=== PATIENT | female | born 1935 | race African-American/Black ===

== ENCOUNTER 2020-06-15 10:26 | Inpatient (IN) | payer MEDICARE, MEDICAID ==
[~2020-06-15] VITALS: Ht 167.6 cm; Wt 54.4 kg
[~2020-06-15 10:26] MED LIST: CLOPIDOGREL75 MG ORAL; KEFLEX500 MG ORAL; LEVETIRACETAM500 MG ORAL; METOPROLOL TART25 MG ORAL; TEMAZEPAM30 MG ORAL
[2020-06-15 10:35] VITALS: BP 115/68
--- NOTE | 2020-06-15 10:35 | NUR ---
ED Nurse Note: Pt brought in by ambualnce from home d/t CP that started this morning. Per EMS and song, pt has been having toothaches recently with jaw pain and is receiving dental care. Pt now reporting chest pressure pain extending to left shoulder. Respirations even and unlabored on room air. Vitals stable as documented. A+Ox4, speaking in complete sentences, sometimes forgetful.
[2020-06-15 11:08] LABS: BASOPHILS % (AUTO) 0.9 % (0.0-2.0); EOSINOPHILS % (AUTO) 0.1 % (0.0-3.0); HEMATOCRIT 36.3 % (37.0-47.0); HEMOGLOBIN 11.7 G/DL (12.0-16.0); LYMPHOCYTES % (AUTO) 12.4 % (20.0-45.0); MEAN CORPUSCULAR VOLUME 92 FL (80-99); NEUTROPHILS % (AUTO) 74.6 % (45.0-75.0); PLATELET COUNT 156 K/UL (150-450); RED BLOOD COUNT 3.96 M/UL (4.20-5.40); RED CELL DISTRIBUTION WIDTH 13.4 % (11.6-14.8); WHITE BLOOD COUNT 6.5 K/UL (4.8-10.8)
[2020-06-15] MEDS ORDERED: UNABLE TO OBTAIN (11:10)
[2020-06-15 11:19] LABS: CALCIUM 9.6 MG/DL (8.5-10.1); CREATININE 1.4 MG/DL (0.55-1.30); POTASSIUM 4.1 MMOL/L (3.5-5.1)
[2020-06-15 11:23] LABS: ALBUMIN 4.3 G/DL (3.4-5.0); BILIRUBIN,TOTAL 0.7 MG/DL (0.2-1.0)
--- NOTE | 2020-06-15 11:36 | NUR ---
ED Nurse Note: pt reports that three years ago a doctor told her to not take anything with aspirin in it. Pt unaware of why
--- NOTE | 2020-06-15 11:44 | Diagnostic Imaging Report ---
Indication: Chest pain Technique: One view of the chest Comparison: 10/12/2012 Findings: Lungs and pleural spaces are clear. The heart size is normal. The aorta is tortuous and calcified. No significant change Impression: No acute process
[2020-06-15 12:30] VITALS: BP 126/77
--- NOTE | 2020-06-15 13:11 | NUR ---
ED Nurse Note: tatum Raya - son - home number: [phone]
--- NOTE | 2020-06-15 13:11 | NUR ---
ED Nurse Note: son's cell phone number - [phone]
--- NOTE | 2020-06-15 13:46 | Emergency Room Report ---
History of Present Illness General Chief Complaint: Chest Pain Present Illness HPI Disclaimer: Please note that this report is being documented using [employer] technology. This can lead to erroneous entry secondary to incorrect interpretation by the dictating instrument. HPI: 85-year old female presents from home with complaints of chest pain. She states she has a history of "a heart condition" and starting last night she was having some jaw pain and neck pain and now describes left-sided chest pain that is pressure-like, nonradiating at this time. She denies any nausea vomiting fever coughing or shortness of breath. Pain is approximately 5 out of 10 on my exam. Ports an adverse reaction to aspirin in the past. Allergies: Coded Allergies: ASPIRIN (Unverified Adverse Reaction, Unknown, 05/08/16) COVID-19 Screening Contact w/high risk pt: No Experienced COVID-19 symptoms?: No COVID-19 Testing performed LUGGAGE ATTENDANT: No Patient History Reviewed Nursing Documentation: PMH: Agreed; PSxH: Agreed Nursing Documentation-PMH Hx Cardiac Problems: Yes Hx Hypertension: Yes Hx Seizures: Yes Review of Systems All Other Systems: negative except mentioned in HPI Physical Exam Vital Signs Date Time Temp Pulse Resp B/P (MAP) Pulse Ox O2 Delivery O2 Flow Rate FiO2 06/15/20 10:28 97.9 98 16 117/72 (87) 97 Room Air Sp02 EP Interpretation: reviewed, normal General Appearance: well appearing, no apparent distress, other - Thin appearing Head: normocephalic, atraumatic Eyes: bilateral eye PERRL, bilateral eye EOMI ENT: hearing grossly normal, moist mucus membranes Neck: full range of motion, supple Respiratory: lungs clear, normal breath sounds, no rhonchi, no respiratory distress, no retraction, no wheezing Cardiovascular #1: normal peripheral pulses, regular rate, rhythm, no murmur Gastrointestinal: non tender, soft, non-distended, no guarding Neurologic: alert, oriented x3, no focal defects Skin: normal color, warm/dry Medical Decision Making Diagnostic Impression: Primary Impression: Chest pain ER Course MDM: Differential diagnosis included but not limited to angina, musculoskeletal injury, GERD, muscle spasm, less likely dissection or PE. Clinical course-patient was in no acute distress on exam. EKG showed no ischemic changes. She states she has a history of heart condition but has never been admitted here in the past. Patient is a poor historian. Troponin was negative. Chest x-ray did not show any acute pathology. However due to her age and reported cardiac history and episode of chest pain with some jaw pain last night I do believe she would benefit from observation and admission to the hospital. Aspirin was not given in the ER secondary to a reported aspirin allergy. Labs - Laboratory Tests Test 06/15/20 10:40 White Blood Count 6.5 K/UL (4.8-10.8) Red Blood Count 3.96 M/UL (4.20-5.40) L Hemoglobin 11.7 G/DL (12.0-16.0) L Hematocrit 36.3 % (37.0-47.0) L Mean Corpuscular Volume 92 FL (80-99) Mean Corpuscular Hemoglobin 29.6 PG (27.0-31.0) Mean Corpuscular Hemoglobin Concent 32.4 G/DL (32.0-36.0) Red Cell Distribution Width 13.4 % (11.6-14.8) Platelet Count 156 K/UL (150-450) Mean Platelet Volume 7.7 FL (6.5-10.1) Neutrophils (%) (Auto) 74.6 % (45.0-75.0) Lymphocytes (%) (Auto) 12.4 % (20.0-45.0) L Monocytes (%) (Auto) 12.0 % (1.0-10.0) H Eosinophils (%) (Auto) 0.1 % (0.0-3.0) Basophils (%) (Auto) 0.9 % (0.0-2.0) Sodium Level 140 MMOL/L (136-145) Potassium Level 4.1 MMOL/L (3.5-5.1) Chloride Level 103 MMOL/L (98-107) Carbon Dioxide Level 28 MMOL/L (21-32) Anion Gap 9 mmol/L (5-15) Blood Urea Nitrogen 19 mg/dL (7-18) H Creatinine 1.4 MG/DL (0.55-1.30) H Estimated Glomerular Filtration Rate 43.3 mL/min (>60) Glucose Level 108 MG/DL (74-106) H Calcium Level 9.6 MG/DL (8.5-10.1) Total Bilirubin 0.7 MG/DL (0.2-1.0) Aspartate Amino Transferase (AST) 17 U/L (15-37) Alanine Aminotransferase (ALT) 12 U/L (12-78) Alkaline Phosphatase 48 U/L (46-116) Troponin I 0.000 ng/mL (0.000-0.056) Total Protein 8.4 G/DL (6.4-8.2) H Albumin 4.3 G/DL (3.4-5.0) Globulin 4.1 g/dL Albumin/Globulin Ratio 1.0 (1.0-2.7) Plan-admission to the telemetry unit EKG Diagnostic Results Rate: normal Rhythm: NSR ST Segments: no acute changes Rhythm Strip Diag. Results EP Interpretation: yes Rate: 99 Rhythm: NSR, no PVC's Chest X-Ray Diagnostic Results Chest X-Ray Diagnostic Results : Chest X-Ray Ordered: Yes # of Views/Limited/Complete: 1 View Indication: Chest Pain EP Interpretation: Yes Interpretation: no consolidation, no effusion, no pneumothorax Impression: No acute disease Electronically Signed by: Yfn Snyder MD Last Vital Signs Date Time Temp Pulse Resp B/P (MAP) Pulse Ox O2 Delivery O2 Flow Rate FiO2 06/15/20 12:30 97.8 97 18 126/77 97 Room Air Disposition: ADMITTED INPATIENT Condition: Serious Referrals: [facility],REFERRING (PCP) Yfn Snyder M.D. Jun 15, 2020 13:46
[2020-06-15] MEDS ORDERED: Nitroglycerin Subl 0.4mg tab SL PRN ×2 (15:00→18:00)
--- NOTE | 2020-06-15 15:25 | NUR ---
ED Nurse Note: Report given to SMILEY Mercer on 2E
--- NOTE | 2020-06-15 16:06 | NUR ---
ED Nurse Note: Pt transferred safely to 2E on the monitor. Transferred with all belongings. Pt has glasses case with no glasses inside.
--- NOTE | 2020-06-15 16:10 | NUR ---
NURSE NOTES: pt arrived to unit in stable condition no chest pain no SOB. Pt was put on conveyor monitor at 1650, no cardiac or respiratory distress. Belonging with pt, eye glasses and shoes in addition to cloths. Bed is locked and in lowest position. Call light within reach. v/s 114/69 HR 90 T 98.2 R20 O296. will continue to monitor pt.
--- NOTE | 2020-06-15 17:38 | NUR ---
NURSE NOTES: pt only had one hearing aid L ear only, upon admission.
--- NOTE | 2020-06-15 19:05 | NUR ---
NURSE NOTES: Ok for pt to ambulate as form of DVT prophylaxis, per doct. Prazat. No SCD's were ordered for pt.
--- NOTE | 2020-06-15 19:44 | NUR ---
NURSE NOTES: Report received from SMILEY Mercer. Patient is awake on bed, alert and oriented x 3-4. Hard of hearing and has 1 hearing aid on left ear. On room air, sating 96% with no complaints of shortness of breath. On cardiac diet, instructed and amenable. Patient is ambulatory but needs assistance, bed alarm is on. IV site is on right forearm g-20 saline lock, that is patent and intact. equipment monitor phototypesetting is in place, shows Aflutter. Safety measures are in place, bed in lowest and locked position, side rails up x 2, call light button and bedside table within reach, instructed to call for any assistance needed. Will continue plan of carel
[2020-06-15 20:00] VITALS: BP 110/70
--- NOTE | 2020-06-15 20:03 | NUR ---
NURSE HAND-OFF REPORT: Important Events on Shift:unable to confirm medication with family member endorsed it to Lisa/RN, she will follow up to confirm medications pt takes at home. Pt is extremely hard of hearing. Per doctor Chadwick continue home meds. Lisa will continue medication as soon as she is able to verify medications with family members. Patient Status: full Diet: cardiac Pending Orders: labs am Pending Results/Labs: Pending MD notification: Latest Vital Signs: Temperature 98.2 , Pulse 91 , B/P 113 /72 , Respiratory Rate 18 , O2 SAT 98 , Room Air, O2 Flow Rate . Vital Sign Comment: EKG Rhythm: Sinus Rhythm Rhythm change?: Rocky VARGHESE Notified?: Rocky Donovan MD Response: Order Received& Read Back Latest Dorsey Fall Score: 35 Fall Risk: Medium Risk Safety Measures: Call light , Bed Alarm Zone 2, Side Rails Side Rails x2, Bed position . Fall Precautions: y Yellow Gown y Report given to Lisa/RN .
[2020-06-16] VITALS (7 sets, daily range): BP systolic 102–128; BP diastolic 54–87
[2020-06-16] MEDS: traMADol 50mg tab ORAL PRN (01:09)
--- NOTE | 2020-06-16 07:22 | NUR ---
NURSE NOTES: Received hand-off report from SMILEY Parr. Patient in stable condition, alert and oriented x3, able to verbalize needs and follow commands. Stat EKG was performed and reported to Dr. Smith, findings were atrial fibrillation with rapid ventricular response HR 119, Dr. Smith aware, no new orders at this time. Dr. Smith was called initially but stated that texting is preferred. V/S BP: 128/87, spO2: 98%, RR: 20. 2 side rails padded, IV site intact. Bed in lowest and locked position, bed alarm on, yellow socks on, call light within reach.
--- NOTE | 2020-06-16 07:22 | NUR ---
NURSE HAND-OFF REPORT: Important Events on Shift: Patient has eulalia resting well comfortably with no complaints made. Patient Status: Patient is asleep, in stable condition. Plan of care endorsed. Diet: Cardiac diet Pending Orders: 2DECHO Pending Results/Labs:Troponin result this morning Pending MD notification:none Latest Vital Signs: Temperature 97.9 , Pulse 94 , B/P 126 /71 , Respiratory Rate 16 , O2 SAT 96 , Room Air, O2 Flow Rate . Vital Sign Comment: stable EKG Rhythm: Atrial Flutter Rhythm change?: N Notified?: Rocky Donovan MD Response: Order Received& Read Back Latest Dorsey Fall Score: 35 Fall Risk: Medium Risk Safety Measures: Call light Within Reach, Bed Alarm Zone 1, Side Rails Side Rails x2, Bed position . Fall Precautions: Yellow Socks Door Sign Patient Fall Education Report given to SMILEY Doyle.
--- NOTE | 2020-06-16 11:52 | Cardiac Electrophysiology PN ---
Subjective Subjective [id number] Objective Last 24 Hour Vital Signs Date Time Temp Pulse Resp B/P (MAP) Pulse Ox O2 Delivery O2 Flow Rate FiO2 06/16/20 09:32 117 128/87 06/16/20 08:00 106 06/16/20 08:00 97.6 117 18 128/87 (101) 96 06/16/20 07:18 152 06/16/20 07:18 152 20 121/75 (90) 99 06/16/20 04:00 94 06/16/20 04:00 97.9 113 16 126/71 (89) 96 06/16/20 00:00 101 06/16/20 00:00 97.7 98 16 124/78 (93) 100 06/15/20 21:00 Room Air 06/15/20 20:00 98.0 97 20 110/70 (83) 96 06/15/20 20:00 102 06/15/20 17:39 Room Air 06/15/20 17:15 91 06/15/20 16:06 98.2 92 18 113/72 98 Room Air 06/15/20 15:05 109/66 06/15/20 12:30 97.8 97 18 126/77 97 Room Air Intake and Output 06/15/20 06/16/20 19:00 07:00 Intake Total 820 ml Output Total 450 ml Balance 370 ml Intake Oral 820 ml Output Urine Total 450 ml # Voids 1 2 Laboratory Tests Test 06/16/20 06:14 Troponin I 0.000 ng/mL (0.000-0.056) Stefano Smith MD Jun 16, 2020 11:52
[2020-06-16] MEDS: Metoprolol Tartrate 50mg tab ORAL SCH ×2 (11:55→22:49)
--- NOTE | 2020-06-16 12:30 | Consultation ---
DATE OF CONSULTATION: 06/16/2020 PULMONARY CONSULTATION HISTORY OF PRESENT ILLNESS: This is an 85-year-old female who came to the hospital with chest pain. The patient reports unknown cardiac conditions. She started having neck and jaw pain. Denies any nausea, vomiting, hematemesis. The patient denies any significant past history except for history of problems, hypertension, seizure disorder. MEDICATIONS: Her current list of home medications includes Plavix, Keppra, metoprolol. REVIEW OF SYSTEMS: Denies any headaches, hematemesis, melena, hematochezia, night sweats or weight loss. PHYSICAL EXAMINATION: GENERAL: Reveals an 85-year-old female. VITAL SIGNS: Blood pressure 120/70, heart rate 110, respiratory rate 18, O2 saturation 96% on room air. HEENT: Unremarkable. CHEST: Clear breath sounds bilaterally. ABDOMEN: Soft. EXTREMITIES: There is no edema. LABORATORY DATA: Hemoglobin 11.7, otherwise normal CBC and BMP. Troponin negative x2. IMAGING STUDIES: X-ray chest obtained, which showed clear lung sanchez bilaterally. IMPRESSION: 1. Chest pain, rule out ACS. 2. Troponin negative x2. DISCUSSION: I believe her chest pain is likely cardiac. I do not see a pulmonary source. We will request 2D echo. Cardiology has been consulted. We will follow carefully. Tera White M.D. DR: Mary Kay JOB#: [id number] CC:
--- NOTE | 2020-06-16 12:42 | NUR ---
INSURANCE [employer]IC[employer] FAXED TO [facility] [phone]
--- NOTE | 2020-06-16 12:50 | NUR ---
NURSE NOTES: Notified Dr. Smith regarding BP 109/78 and did not administer metoprolol.
--- NOTE | 2020-06-16 15:30 | History and Physical Report ---
DATE OF ADMISSION: 06/15/2020 HISTORY OF PRESENT ILLNESS: This is an 85-year-old female, currently in bed, generalized weakness, hard of hearing mild to moderate shortness of breath, and having recurrent chest pain. The patient denies any palpitation. Denies any nausea or vomiting. The patient is in bed and looks generalized weakness and dehydrated. PAST MEDICAL HISTORY: Significant for coronary artery disease, seizure, insomnia, early dementia. MEDICATIONS: She is taking apixaban, Plavix, Keppra, metoprolol, nitroglycerin, Restoril, and tramadol. ALLERGIES: NKA. SOCIAL HISTORY: The patient lives at home. PHYSICAL EXAMINATION: GENERAL: This is a cachectic female in the bed and looks comfortable, was found to have tachycardia. VITAL SIGNS: Heart rate was 117, blood pressure 128/87, temperature 97.6, saturation 96%. SKIN: Dry. HEENT: AT/NC. DELTA. NECK: Supple. No JVD. CHEST: Bilateral decreased breath sounds. CARDIOVASCULAR: Regular rhythm. No gallop. No murmur. ABDOMEN: Soft. Positive bowel sounds. Nontender. EXTREMITIES: No edema. GENITOURINARY: Deferred. LABORATORY DATA: White count 6.5, hemoglobin 12, hematocrit 36, platelets are 156. Chemistry panel, BUN 19, creatinine 1.4. Troponins are negative. Sodium 140, potassium 4.1. EKGs known for sinus tachycardia. IMAGING: The patient has a chest x-ray showing no acute process. Lungs are clear. clear. ASSESSMENT: 1. Recurrent chest pain. 2. Palpitation. 3. Coronary artery disease. 4. Dementia. 5. Seizure. PLAN: We will currently continue current treatment. Consider cardiology consult. Continue apixaban, metoprolol. Continue Keppra, Plavix, Restoril, tramadol, nitroglycerin for pain. Also order 2D echo and rule out KS with stress test. Suresh Vann M.D. DR: YAHAIRA JOB#: [id number] CC:
--- NOTE | 2020-06-16 15:31 | NUR ---
CASE MANAGEMENT:REVIEW 85YR OLD MALE BIBA FROM HOME CC; CHEST PAIN SI: ACS 97.9 98 16 117/72 97% ON RA TROPONIN(-) IS: NTG SL X1 CHEST XRAY : TO TELEMETRY UNIT IS: ELIQUIS PO BID LOPRESSOR PO Q12 KEPPRA PO BID PLAVIX PO QD 2DECHO CARDIAC CONSULT
[2020-06-16] MEDS: Eliquis 2.5mg tablet ORAL SCH (17:48)
--- NOTE | 2020-06-16 19:00 | Consultation ---
DATE OF CONSULTATION: 06/16/2020 CARDIOLOGY CONSULTATION CONSULTING PHYSICIAN: Stefano Smith MD REFERRING PHYSICIAN: Dao Vann MD REASON FOR CONSULTATION: Chest pain and atrial fibrillation with rapid ventricular response. HISTORY OF PRESENT ILLNESS: The patient is an 85-year-old lady with history of hypertension, who presented to the emergency room complaining of chest pain. The patient stated she has a history of heart condition and noticed her heart racing and has had some jaw pain and neck pain. The pain was pressure like and was 5/10. The patient denies any prior myocardial infarction, coronary artery disease, or congestive heart failure. REVIEW OF SYSTEMS: Negative other than what was mentioned in history of present illness. PAST MEDICAL HISTORY: As mentioned above. FAMILY HISTORY: Noncontributory. SOCIAL HISTORY: Does not smoke or drink alcohol. PHYSICAL EXAMINATION: VITAL SIGNS: Show blood pressure of 117/87, pulse was as high as 152 and currently 117, respirations 18, and she is afebrile. HEAD AND NECK: Shows no JVD. LUNGS: Coarse rhonchi. CARDIOVASCULAR: Shows S1 and S2 with no gallop or murmur. ABDOMEN: Soft. EXTREMITIES: No pitting edema. LABORATORY AND DIAGNOSTIC DATA: Her EKG initially showed sinus rhythm with sinus arrhythmia. Subsequently, the patient had atrial flutter with rapid ventricular response. Labs show troponin negative x2. Sodium 140, potassium 4.1, BUN of 19, creatinine 1.4, and glucose of 96. White count is 6.5, hemoglobin 11.7, hematocrit 36.3, and platelet count of 155,000. ASSESSMENT AND PLAN: 1. Atrial fibrillation with rapid ventricular response. I will increase the metoprolol to 50 mg b.i.d. I will start the patient on Eliquis 2.5 mg b.i.d. in view of her creatinine of 1.6 as well as her age of 85. 2. Hypertension. Again, increase metoprolol to 50 mg b.i.d. 3. Seizures, on Keppra. Thank you very much for allowing me to participate in the care of this patient. Please do not hesitate to contact me for any questions regarding my evaluation. Stefano Smith M.D. DR: SANTANA JOB#: [id number] CC:
--- NOTE | 2020-06-16 19:25 | NUR ---
NURSE NOTES: Report received from SMILEY Miguel. Patient is awake alert and makes needs known but hard of hearing. No SOB or distress. Bed at lowest position locked with siderail up and bed alarm activated. Call light and bedside table within reach. Will continue with plan of care.
--- NOTE | 2020-06-16 19:26 | NUR ---
NURSE HAND-OFF REPORT: Important Events on Shift: left hearing aid beside, dentures patient wearing; in the morning 113 HR atrial fibrillation with rapid ventricular response; 16:[address] Smith aware Patient Status: full code, stable condition Diet: cardiac Pending Orders: [] Pending Results/Labs:[] Pending MD notification:[] Latest Vital Signs: Temperature 97.7 , Pulse 80 , B/P 102 /60 , Respiratory Rate 20 , O2 SAT 98 , Room Air, O2 Flow Rate . Vital Sign Comment: [] EKG Rhythm: Atrial Fibrillation Rhythm change?: Y Notified?: Y -Dr. Luis VARGHESE Response: Message left await call Latest Dorsey Fall Score: 35 Fall Risk: Medium Risk Safety Measures: Call light Within Reach, Bed Alarm Zone 1, Side Rails Side Rails x2, Bed position Low and Locked. Fall Precautions: Yellow Socks Door Sign Patient Fall Education Report given to SMILEY Chiang.
[2020-06-17] VITALS: BP 100/60
[2020-06-17] MEDS: traMADol 50mg tab ORAL PRN ×2 (03:54→15:09)
[2020-06-17 04:00] VITALS: BP 103/57
--- NOTE | 2020-06-17 04:09 | Cardiology Report ---
APPROVED REPORT EXAM: Two-dimensional and M-mode echocardiogram with Doppler and color Doppler. INDICATION Chest Pain M-Mode DIMENSIONS IVSd0.8 (0.7-1.1cm)Left Atrium (MM)4.3 (1.6-4.0cm) LVDd3.7 (3.5-5.6cm)Aortic Root3.0 (2.0-3.7cm) PWd0.9 (0.7-1.1cm)Aortic Cusp Exc.1.9 (1.5-2.0cm) IVSs1.1 cmEPSS0.5 (>1.0cm) LVDs2.9 (2.5-4.0cm) PWs1.1 cm <Conclusion> Technically difficult study due to poor acoustic windows. Normal left ventricular chamber size, systolic function and wall motion to extent visualized. Left ventricular ejection fraction estimated to be 50- 55 %. No evidence of left ventricular hypertrophy. Small pericardial effusion. Mild left atrial enlargement. Right cardiac chamber sizes are within normal limits. Focal aortic valve sclerosis with adequate cusp excursion. Thickened mitral valve leaflets with normal excursion. Mitral annulus and aortic root calcification. Pulmonic valve not well visualized. Normal tricuspid valve structure. IVC not obtainable. A color flow and spectral Doppler study was performed and revealed: Trace aortic regurgitation. Trace mitral regurgitation. Left ventricular diastolic function undetermined due to Arrhythmia. Trace to mild tricuspid regurgitation. Tricuspid systolic velocities suggests peak right ventricular systolic pressure of 28 mmHg. No pulmonic regurgitation present.
--- NOTE | 2020-06-17 04:10 | Cardiology Report ---
APPROVED REPORT EKG Measurement Heart [id number] CA 224P [id number] <Conclusion> atrial fibrillation with rapid ventricular response Nonspecific T wave abnormality Abnormal ECG
--- NOTE | 2020-06-17 04:10 | Cardiology Report ---
APPROVED REPORT EKG Measurement Heart [id number] [place] 200P [id number] <Conclusion> Atrial tachy with variable block
--- NOTE | 2020-06-17 07:30 | NUR ---
NURSE NOTES: Received patient in bed. Awake, A/O x3. On room air, respirations unlabored. IV in the Right FA, site intact. Patient denies pain. Bed at the lowest position, side rails up x2.
--- NOTE | 2020-06-17 07:42 | NUR ---
NURSE HAND-OFF REPORT: Important Events on Shift:[Stable] Patient Status: [Alert oriented x3] Diet: [Cardiac] Pending Orders: [] Pending Results/Labs:[] Pending MD notification:[] Latest Vital Signs: Temperature 97.3 , Pulse 99 , B/P 103 /57 , Respiratory Rate 16 , O2 SAT 99 , Room Air, O2 Flow Rate . Vital Sign Comment: [] EKG Rhythm: Atrial Fibrillation Rhythm change?: N MD Notified?: Rocky Smith MD Response: Message left await call Latest Dorsey Fall Score: 35 Fall Risk: Medium Risk Safety Measures: Call light Within Reach, Bed Alarm Zone 1, Side Rails Side Rails x2, Bed position Low and Locked. Fall Precautions: Yellow Socks Door Sign Patient Fall Education Report given to [SMILEY Bateman].
[2020-06-17 08:00] VITALS: BP 128/68
--- NOTE | 2020-06-17 08:39 | Pulmonology Progress Note ---
Subjective Interval Events: Feeling well Constitutional: Reports: no symptoms HEENT: Repors: no symptoms Respiratory: Reports: no symptoms Cardiovascular: Reports: no symptoms Gastrointestinal/Abdominal: Reports: no symptoms Allergies: Coded Allergies: ASPIRIN (Unverified Adverse Reaction, Unknown, 05/08/16) Objective Last 24 Hour Vital Signs Date Time Temp Pulse Resp B/P (MAP) Pulse Ox O2 Delivery O2 Flow Rate FiO2 06/17/20 08:25 Room Air 06/17/20 04:00 97.3 99 16 103/57 (72) 99 06/17/20 04:00 99 06/17/20 00:00 97.9 99 16 100/60 (73) 99 06/17/20 00:00 99 06/16/20 22:49 101 110/70 06/16/20 21:00 Room Air 06/16/20 20:00 97.5 99 20 102/54 (70) 99 06/16/20 20:00 91 06/16/20 16:00 97.7 80 20 102/60 (74) 98 06/16/20 16:00 80 06/16/20 12:00 83 06/16/20 12:00 97.7 97 20 109/78 (88) 98 06/16/20 11:55 83 109/78 06/16/20 09:32 117 128/87 06/16/20 09:00 Room Air Intake and Output 06/16/20 06/17/20 18:59 06:59 Intake Total 500 ml 400 ml Balance 500 ml 400 ml Intake Oral 500 ml 400 ml # Voids 2 1 # Bowel Movements 1 General Appearance: no acute distress HEENT: normocephalic Respiratory: chest wall non-tender, lungs clear Cardiovascular: normal peripheral pulses, normal rate Abdomen: normal bowel sounds Laboratory Tests 06/17/20 05:40: Troponin I 0.000, Pro-B-Type Natriuretic Peptide 639H Current Medications Medications (Trade) Dose Ordered Sig/Van Route PRN Reason Start Time Stop Time Status Last Admin Dose Admin Apixaban (Eliquis) 2.5 mg BID ORAL 06/16/20 18:00 09/14/20 17:59 06/16/20 17:48 Clopidogrel Bisulfate (Plavix) 75 mg DAILY ORAL 06/16/20 09:00 07/16/20 08:59 06/16/20 09:31 Levetiracetam (Keppra) 250 mg TWICE A DAY ORAL 06/16/20 09:00 07/31/20 08:59 06/16/20 17:47 Metoprolol Tartrate (Lopressor) 50 mg EVERY 12 HOURS ORAL 06/16/20 11:55 09/14/20 11:54 06/16/20 22:49 Nitroglycerin (Ntg) 0.4 mg Q5M PRN SL Prn Chest Pain 06/15/20 18:00 07/15/20 17:59 Temazepam (Restoril) 15 mg HSPRN PRN ORAL Insomnia 06/16/20 02:00 06/23/20 01:59 Tramadol HCl (Ultram) 50 mg Q4H PRN ORAL For Pain 06/16/20 01:00 06/23/20 00:59 06/17/20 03:54 Assessment/Plan Assessment/Plan IMPRESSION: 1. Chest pain,resolved 2. Troponin negatives. 3. A fib DISCUSSION: I Chest pain resolved Heart rate controlled Seen by cardiology DC planning Saturating well on RA Lamont Adame Omar Syed MD Jun 17, 2020 08:39
[2020-06-17] MEDS: Eliquis 2.5mg tablet ORAL SCH ×2 (08:41→17:13)
[2020-06-17] MEDS: Metoprolol Tartrate 50mg tab ORAL SCH ×2 (08:42→21:00)
--- NOTE | 2020-06-17 08:47 | General Progress Note ---
Subjective Allergies: Coded Allergies: ASPIRIN (Unverified Adverse Reaction, Unknown, 05/08/16) Subjective more awake sob better no c-p Objective Last 24 Hour Vital Signs Date Time Temp Pulse Resp B/P (MAP) Pulse Ox O2 Delivery O2 Flow Rate FiO2 06/17/20 08:42 80 128/68 06/17/20 08:25 Room Air 06/17/20 08:00 96.8 80 19 128/68 (88) 97 06/17/20 04:00 97.3 99 16 103/57 (72) 99 06/17/20 04:00 99 06/17/20 00:00 97.9 99 16 100/60 (73) 99 06/17/20 00:00 99 06/16/20 22:49 101 110/70 06/16/20 21:00 Room Air 06/16/20 20:00 97.5 99 20 102/54 (70) 99 06/16/20 20:00 91 06/16/20 16:00 97.7 80 20 102/60 (74) 98 06/16/20 16:00 80 06/16/20 12:00 83 06/16/20 12:00 97.7 97 20 109/78 (88) 98 06/16/20 11:55 83 109/78 06/16/20 09:32 117 128/87 06/16/20 09:00 Room Air Intake and Output 06/16/20 06/17/20 19:00 07:00 Intake Total 500 ml 400 ml Balance 500 ml 400 ml Intake Oral 500 ml 400 ml # Voids 2 1 # Bowel Movements 1 Laboratory Tests 06/17/20 05:40: Troponin I 0.000, Pro-B-Type Natriuretic Peptide 639H Height (Feet): 5 Height (Inches): 6.00 Weight (Pounds): 120 General Appearance: alert EENT: PERRL/EOMI Neck: non-tender, supple Cardiovascular: regular rhythm Respiratory/Chest: lungs clear Abdomen: non tender, soft Extremities: non-tender Assessment/Plan Status: stable Assessment/Plan: 1 cp 2 sob 3weakness 4 failure of thrive cardiac w/u cont current tx Dao Vann MD Jun 17, 2020 08:47
[2020-06-17 12:00] VITALS: BP 128/68
--- NOTE | 2020-06-17 12:52 | NUR ---
CASE MANAGEMENT:REVIEW 06/17/20 SI: CHEST PAIN. AFIB W/RVR 97.0 97 20 128/68 98% ON RA TROPONIN(-) X4 BNP+639 IS: ELIQUIS 2.5MG PO BID LOPRESSOR 50MG PO Q12 KEPPRA 250MG PO BID PLAVIX 75MG PO QD ULTRAM PO Q4HRS PRN : TELEMETRY STATUS PLAN: WAITING FOR CARDIAC CLEARANCE FOR DISCHARGE
--- NOTE | 2020-06-17 13:41 | CDS Physician Query ---
Clarification is required for compliance, coding accuracy, and to reflect severity of illness for this patient Dear Dr. Suresh Vann Date 06/17/2020 Shed Boss/CDS' Name: Radha Henriquez Clinical Documentation states: 85-year-old female, currently in bed, generalized weakness, hard of hearing mild to moderate shortness of breath, and having recurrent chest pain Cardiology consult: Subsequently, the patient had atrial flutter with rapid ventricular response. Labs show troponin negative x2...Atrial fibrillation with rapid ventricular response. I will increase the metoprolol to 50 mg b.i.d. I will start the patient on Eliquis 2.5 mg b.i.d. Please document the suspected etiology of Chest Pain: [] Atrial Fibrillation [] Atrial Flutter [] Acute Coronary Syndrome [] Anxiety [] Pneumonia [] Costochondritis [] GERD/Esophagitis [] Other: [] Unable to determine Present on Admission: [] Yes [] No [] Clinically Undetermined Physician signature Date Please also document in your Progress Notes and/or Discharge Summary and indicate if the condition was present on admission. APRILD
--- NOTE | 2020-06-17 14:38 | Cardiac Electrophysiology PN ---
Assessment/Plan Assessment/Plan 1. Atrial fibrillation with rapid ventricular response. Better on metoprolol 50 mg b.i.d. On Eliquis 2.5 mg b.i.d. in view of her creatinine of 1.6 as well as her age of 85. 2. Hypertension. Again, increased metoprolol to 50 mg b.i.d. 3. Seizures, on Keppra. 4. Hard of hearing DW RN Subjective Subjective No CP or SOB. Is hard of hearing Objective Last 24 Hour Vital Signs Date Time Temp Pulse Resp B/P (MAP) Pulse Ox O2 Delivery O2 Flow Rate FiO2 06/17/20 12:00 97.0 97 20 128/68 (88) 98 06/17/20 12:00 83 06/17/20 08:42 80 128/68 06/17/20 08:25 Room Air 06/17/20 08:00 96.8 80 19 128/68 (88) 97 06/17/20 08:00 93 06/17/20 04:00 97.3 99 16 103/57 (72) 99 06/17/20 04:00 99 06/17/20 00:00 97.9 99 16 100/60 (73) 99 06/17/20 00:00 99 06/16/20 22:49 101 110/70 06/16/20 21:00 Room Air 06/16/20 20:00 97.5 99 20 102/54 (70) 99 06/16/20 20:00 91 06/16/20 16:00 97.7 80 20 102/60 (74) 98 06/16/20 16:00 80 Intake and Output 06/16/20 06/17/20 19:00 07:00 Intake Total 500 ml 400 ml Balance 500 ml 400 ml Intake Oral 500 ml 400 ml # Voids 2 1 # Bowel Movements 1 Laboratory Tests Test 06/17/20 05:40 Troponin I 0.000 ng/mL (0.000-0.056) Pro-B-Type Natriuretic Peptide 639 pg/mL (0-125) H Objective HEAD AND NECK: no JVD. LUNGS: Coarse rhonchi. CARDIOVASCULAR: Nl S1 and S2 with no gallop or murmur. ABDOMEN: Soft. EXTREMITIES: No pitting edema. Stefano Smith MD Jun 17, 2020 14:38
--- NOTE | 2020-06-17 15:13 | Cardiology Report ---
APPROVED REPORT EKG Measurement Heart [id number] <Conclusion> Atrial fibrillation with rapid ventricular response Nonspecific T wave abnormality Abnormal ECG
[2020-06-17 16:00] VITALS: BP 97/63
[2020-06-17] MEDS ORDERED: Lexiscan 0.4mg/5ml syringe IV PRN (16:35)
--- NOTE | 2020-06-17 18:55 | NUR ---
NURSE HAND-OFF REPORT: Important Events on Shift:[lexiscan scan tomorrow, NPO tonight] Patient Status: [FULL CODE] Diet: [cardiac] Pending Orders: [] Pending Results/Labs:[] Pending MD notification:[] Latest Vital Signs: Temperature 97.3 , Pulse 93 , B/P 97 /63 , Respiratory Rate 21 , O2 SAT 97 , Room Air, O2 Flow Rate . Vital Sign Comment: [] EKG Rhythm: Atrial Flutter Rhythm change?: N MD Notified?: Y -Dr. Luis VARGHESE Response: Message left await call Latest Dorsey Fall Score: 35 Fall Risk: Medium Risk Safety Measures: Call light Within Reach, Bed Alarm Zone 1, Side Rails Side Rails x2, Bed position Low and Locked. Fall Precautions: Yellow Socks Door Sign Patient Fall Education Report given to [Izaiah RN].
--- NOTE | 2020-06-17 19:20 | NUR ---
NURSE NOTES: Report received from Fransico REIS. Patient awake alert oriented x3 very hard of hearing has left hearing aid. Call light and bedside table within reach. Nurse endorsed patient will be NPO statu at midnight for Catalina scan in AM. boat builder and repairer intact. Bed at lowest position locked with side rails up. Will continue with plan of care.
[2020-06-17 20:00] VITALS: BP 102/65
[2020-06-18] VITALS: BP 99/67
--- NOTE | 2020-06-18 03:18 | NUR ---
NURSE HAND-OFF REPORT: Important Events on Shift:[NPO after midnight for stress test/sweetie scan] Patient Status: [Alert oriented x3 stable] Diet: [Cardiac but NPO midnight 06/18] Pending Orders: [] Pending Results/Labs:[] Pending MD notification:[] Latest Vital Signs: Temperature 97.7 , Pulse 84 , B/P 99 /67 , Respiratory Rate 16 , O2 SAT 97 , Room Air, O2 Flow Rate . Vital Sign Comment: [] EKG Rhythm: Atrial Fibrillation Rhythm change?: N MD Notified?: Y -Dr. Luis VARGHESE Response: Message left await call Latest Dorsey Fall Score: 35 Fall Risk: Medium Risk Safety Measures: Call light Within Reach, Bed Alarm Zone 1, Side Rails Side Rails x2, Bed position Low and Locked. Fall Precautions: Yellow Socks Door Sign Patient Fall Education Report given to [SMILEY Pope].
--- NOTE | 2020-06-18 03:25 | NUR ---
NURSE NOTES: Pt. received from SMILEY Chiang. Pt. sleeping, appears comfortable, breathing even and unlabored on room air, no indication of respiratory distress, no indications of pain. IV noted right FA 20g, saline locked. Pt. scheduled for lexiscan 06/18, kept NPO since midnight. Bed low and locked, side rails x3 up, upper rails are padded, bed alarm active, and call light in reach.
[2020-06-18 04:00] VITALS: BP 97/67
--- NOTE | 2020-06-18 05:24 | NUR ---
NURSE NOTES: Discussed with pt. upcoming cardiac exam 06/18. Confirmed with pt. nothing to eat overnight. Pt. acknowledged and verbalized understanding.
--- NOTE | 2020-06-18 07:10 | NUR ---
NURSE HAND-OFF REPORT: Important Events on Shift:[pt. NPO, precardic procedure checklist completed] Patient Status: []sleeping Diet: []cardiac Pending Orders: []stress test Pending Results/Labs:[]na Pending MD notification:[na] Latest Vital Signs: Temperature 98.4 , Pulse 96 , B/P 97 /67 , Respiratory Rate 16 , O2 SAT 98 , Room Air, O2 Flow Rate . Vital Sign Comment: [stable] EKG Rhythm: Atrial Fibrillation Rhythm change?: N MD Notified?: Rocky Smith MD Response: Message left await call Latest Dorsey Fall Score: 35 Fall Risk: Medium Risk Safety Measures: Call light Within Reach, Bed Alarm Zone 1, Side Rails Side Rails x2, Bed position Low and Locked. Fall Precautions: Yellow Socks Door Sign Patient Fall Education Report given to [SMILEY Bateman].
--- NOTE | 2020-06-18 07:20 | NUR ---
NURSE NOTES: Received patient in bed. Awake, A/O x3, very hard of hearing. IV in the Right forearm, site intact. On room air, respirations unlabored. Bed low and locked, side rails up x2, call light within reach with return demonstration.
[2020-06-18 08:00] VITALS: BP 117/75
[2020-06-18] MEDS: Metoprolol Tartrate 50mg tab ORAL SCH ×2 (09:00→20:43)
[2020-06-18] MEDS: Eliquis 2.5mg tablet ORAL SCH ×2 (09:41→17:12)
--- NOTE | 2020-06-18 09:43 | NUR ---
NURSE NOTES: metoprolol PO held d/t stress test today.
--- NOTE | 2020-06-18 10:56 | Pulmonology Progress Note ---
Subjective Interval Events: Feeling well Constitutional: Reports: no symptoms HEENT: Repors: no symptoms Respiratory: Reports: no symptoms Cardiovascular: Reports: no symptoms Gastrointestinal/Abdominal: Reports: no symptoms Allergies: Coded Allergies: ASPIRIN (Unverified Adverse Reaction, Unknown, 05/08/16) Objective Last 24 Hour Vital Signs Date Time Temp Pulse Resp B/P (MAP) Pulse Ox O2 Delivery O2 Flow Rate FiO2 06/18/20 08:17 Room Air 06/18/20 08:00 95 06/18/20 08:00 96.6 97 18 117/75 (89) 98 96 06/18/20 04:00 98.4 86 16 97/67 (77) 98 96 06/18/20 04:00 96 06/18/20 00:00 84 06/18/20 00:00 97.7 86 16 99/67 (78) 97 06/17/20 21:00 Room Air 06/17/20 21:00 85 95/60 06/17/20 20:00 85 06/17/20 20:00 98.1 93 16 102/65 (77) 97 06/17/20 16:00 93 06/17/20 16:00 97.3 90 21 97/63 (74) 97 06/17/20 12:00 97.0 97 20 128/68 (88) 98 06/17/20 12:00 83 Intake and Output 06/17/20 06/18/20 19:00 07:00 Intake Total 120 ml Balance 120 ml Intake Oral 120 ml General Appearance: no acute distress HEENT: normocephalic Respiratory: chest wall non-tender, lungs clear Cardiovascular: normal peripheral pulses, normal rate Abdomen: normal bowel sounds Current Medications Medications (Trade) Dose Ordered Sig/Van Route PRN Reason Start Time Stop Time Status Last Admin Dose Admin Apixaban (Eliquis) 2.5 mg BID ORAL 06/16/20 18:00 09/14/20 17:59 06/18/20 09:41 Clopidogrel Bisulfate (Plavix) 75 mg DAILY ORAL 06/16/20 09:00 07/16/20 08:59 06/18/20 09:41 Levetiracetam (Keppra) 250 mg TWICE A DAY ORAL 06/16/20 09:00 07/31/20 08:59 06/18/20 09:41 Metoprolol Tartrate (Lopressor) 50 mg EVERY 12 HOURS ORAL 06/16/20 11:55 09/14/20 11:54 06/17/20 08:42 Nitroglycerin (Ntg) 0.4 mg Q5M PRN SL Prn Chest Pain 06/15/20 18:00 07/15/20 17:59 Regadenoson (Lexiscan) 0.4 mg ONCE PRN IV CARDIOLOGY 06/17/20 16:35 06/19/20 23:59 Temazepam (Restoril) 15 mg HSPRN PRN ORAL Insomnia 06/16/20 02:00 06/23/20 01:59 Tramadol HCl (Ultram) 50 mg Q4H PRN ORAL For Pain 06/16/20 01:00 06/23/20 00:59 06/17/20 15:09 Assessment/Plan Assessment/Plan IMPRESSION: 1. Chest pain,resolved 2. Troponin negatives. 3. A fib DISCUSSION: I Chest pain resolved Heart rate controlled Seen by cardiology DC planning Saturating well on RA Lamont Adame Omar Syed MD Jun 18, 2020 10:56
--- NOTE | 2020-06-18 11:38 | NUR ---
NURSE NOTES: Dr. Smith notified of a.fib. during stress test. Awaiting call back.
[2020-06-18 12:00] VITALS: BP 123/75
--- NOTE | 2020-06-18 12:06 | General Progress Note ---
Subjective Allergies: Coded Allergies: ASPIRIN (Unverified Adverse Reaction, Unknown, 05/08/16) Subjective more awake sob better episode of afib this am Objective Last 24 Hour Vital Signs Date Time Temp Pulse Resp B/P (MAP) Pulse Ox O2 Delivery O2 Flow Rate FiO2 06/18/20 08:17 Room Air 06/18/20 08:00 95 06/18/20 08:00 96.6 97 18 117/75 (89) 98 96 06/18/20 04:00 98.4 86 16 97/67 (77) 98 96 06/18/20 04:00 96 06/18/20 00:00 84 06/18/20 00:00 97.7 86 16 99/67 (78) 97 06/17/20 21:00 Room Air 06/17/20 21:00 85 95/60 06/17/20 20:00 85 06/17/20 20:00 98.1 93 16 102/65 (77) 97 06/17/20 16:00 93 06/17/20 16:00 97.3 90 21 97/63 (74) 97 Intake and Output 06/17/20 06/18/20 19:00 07:00 Intake Total 120 ml Balance 120 ml Intake Oral 120 ml Height (Feet): 5 Height (Inches): 6.00 Weight (Pounds): 120 General Appearance: alert EENT: PERRL/EOMI Neck: supple Cardiovascular: regular rhythm Respiratory/Chest: normal breath sounds Abdomen: non tender, soft Extremities: non-tender Assessment/Plan Status: stable Assessment/Plan: 1 cp 2 sob 3weakness 4 failure of thrive 5 afib with rvr cardio on the case cardiac w/u cont current tx Dao Vann MD Jun 18, 2020 12:06
--- NOTE | 2020-06-18 15:13 | NUR ---
CASE MANAGEMENT:REVIEW 06/18/20 SI: CHEST PAIN. AFIB W/RVR 96.6 97 18 97/67 98% ON RA IS: IV LEXISCAN X1 ELIQUIS 2.5MG PO BID LOPRESSOR 50MG PO Q12 (HELD FOR STRESS TEST) KEPPRA 250MG PO BID PLAVIX 75MG PO QD ULTRAM PO Q4HRS PRN : TELEMETRY STATUS DCP: FROM HOME PLAN: STRESS TEST FOR TODAY ~ AFIB DURING STRESS TEST
[2020-06-18 16:00] VITALS: BP 110/60
--- NOTE | 2020-06-18 16:03 | Diagnostic Imaging Report ---
Indications: Chest pain Technique: Single day single isotope protocol utilized. Initially, resting images obtained using IV administration 10.4 millicuries 99M technetium Myoview. Subsequently, patient underwent lexiscan stress testing. See cardiology report for details. During Lexiscan infusion, IV administration 30.6 mCi 99 M technetium Myoview. SPECT and planar images obtained. SPECT images gated to 8 phases of the cardiac cycle were also obtained, and reformatted into cine images for evaluation of ejection fraction. Comparison: none Findings: Per cardiology report, patient experienced low blood pressure and atrial fibrillation. No chest pain. Per cardiology report, resting EKG demonstrates sinus rhythm with first-degree AV block there are no ST changes during infusion. Imaging demonstrates no fixed nor reversible post stress perfusion defects. Normal left ventricular chamber size. Calculated post stress ejection fraction 57%. No focal wall motion abnormality. Impression: Nonischemic clinical response to pharmacologic stress, per cardiology report Nonischemic electrocardiographic response to pharmacologic stress, per cardiology report No imaging findings to suggest ischemia, at level of stress achieved. Calculated post stress ejection fraction 57%
--- NOTE | 2020-06-18 18:00 | Cardiac Electrophysiology PN ---
Assessment/Plan Assessment/Plan 1. Atrial fibrillation with rapid ventricular response. Better on metoprolol 50 mg b.i.d. On low dose Eliquis 2.5 mg b.i.d. in view of creatinine of 1.6 as well as her age of 85. 2. CP. Due to atrial fib with RVR. Stress test today showed no ischemia 3. Hypertension. Better on metoprolol 50 mg b.i.d. 4. Seizures, on Keppra. 5. Hard of hearing 6. Renal failure. Cr 1.4. BMP in am DW RN Subjective Subjective No CP or SOB. Is hard of hearing. In atrial fib with controlled rate.Had Stress test today that showed no ischemia Objective Last 24 Hour Vital Signs Date Time Temp Pulse Resp B/P (MAP) Pulse Ox O2 Delivery O2 Flow Rate FiO2 06/18/20 16:00 81 06/18/20 16:00 97.2 82 18 110/60 (77) 97 82 06/18/20 12:00 96 06/18/20 12:00 97.0 97 20 123/75 (91) 98 98 06/18/20 08:17 Room Air 06/18/20 08:00 95 06/18/20 08:00 96.6 97 18 117/75 (89) 98 96 06/18/20 04:00 98.4 86 16 97/67 (77) 98 96 06/18/20 04:00 96 06/18/20 00:00 84 06/18/20 00:00 97.7 86 16 99/67 (78) 97 06/17/20 21:00 Room Air 06/17/20 21:00 85 95/60 06/17/20 20:00 85 06/17/20 20:00 98.1 93 16 102/65 (77) 97 Intake and Output 06/17/20 06/18/20 19:00 07:00 Intake Total 120 ml Balance 120 ml Intake Oral 120 ml Objective HEAD AND NECK: no JVD. LUNGS: Coarse rhonchi. CARDIOVASCULAR: Nl S1 and S2 with no gallop or murmur. ABDOMEN: Soft. EXTREMITIES: No pitting edema. Stefano Smith MD Jun 18, 2020 18:00
--- NOTE | 2020-06-18 18:02 | Cardiac Electrophysiology PN ---
Assessment/Plan Assessment/Plan 1. Atrial fibrillation with rapid ventricular response. Better on metoprolol 50 mg b.i.d. On low dose Eliquis 2.5 mg b.i.d. in view of creatinine of 1.6 as well as her age of 85. 2. CP. Due to atrial fib with RVR. Stress test today showed no ischemia Echo EF 55% 3. Hypertension. Better on metoprolol 50 mg b.i.d. 4. Seizures, on Keppra. 5. Hard of hearing 6. Renal failure. Cr 1.4. BMP in am DW RN Subjective Subjective No CP or SOB. Is hard of hearing. In atrial fib with controlled rate.Had Stress test today that showed no ischemia Objective Last 24 Hour Vital Signs Date Time Temp Pulse Resp B/P (MAP) Pulse Ox O2 Delivery O2 Flow Rate FiO2 06/18/20 16:00 81 06/18/20 16:00 97.2 82 18 110/60 (77) 97 82 06/18/20 12:00 96 06/18/20 12:00 97.0 97 20 123/75 (91) 98 98 06/18/20 08:17 Room Air 06/18/20 08:00 95 06/18/20 08:00 96.6 97 18 117/75 (89) 98 96 06/18/20 04:00 98.4 86 16 97/67 (77) 98 96 06/18/20 04:00 96 06/18/20 00:00 84 06/18/20 00:00 97.7 86 16 99/67 (78) 97 06/17/20 21:00 Room Air 06/17/20 21:00 85 95/60 06/17/20 20:00 85 06/17/20 20:00 98.1 93 16 102/65 (77) 97 Intake and Output 0 06/17/20 06/18/20 19:00 07:00 Intake Total 120 ml Balance 120 ml Intake Oral 120 ml Objective HEAD AND NECK: no JVD. LUNGS: Coarse rhonchi. CARDIOVASCULAR: Nl S1 and S2 with no gallop or murmur. ABDOMEN: Soft. EXTREMITIES: No pitting edema. Stefano Smith MD Jun 18, 2020 18:02
--- NOTE | 2020-06-18 19:30 | NUR ---
NURSE HAND-OFF REPORT: Important Events on Shift:[stress test] Patient Status: [FULL CODE] Diet: [cardiac SEC] Pending Orders: [] Pending Results/Labs:[] Pending MD notification:[] Latest Vital Signs: Temperature 97.2 , Pulse 81 , B/P 110 /60 , Respiratory Rate 18 , O2 SAT 97 , Room Air, O2 Flow Rate . Vital Sign Comment: [] EKG Rhythm: Atrial Fibrillation Rhythm change?: N MD Notified?: Rocky -Dr. Luis VARGHESE Response: Message left await call Latest Dorsey Fall Score: 35 Fall Risk: Medium Risk Safety Measures: Call light Within Reach, Bed Alarm Zone 1, Side Rails Side Rails x2, Bed position Low and Locked. Fall Precautions: Yellow Socks Door Sign Patient Fall Education Report given to [Piedad RN].
--- NOTE | 2020-06-18 19:31 | NUR ---
NURSE NOTES: Cane and shirt, shoes and pants added to inventory log, brought by son.
--- NOTE | 2020-06-18 19:35 | NUR ---
NURSE NOTES: RECEIVED REPORT FROM SMILEY VENTURA. PT IN BED AWAKE, ALERT/ORIENTED X3, ABLE TO MAKE NEEDS KNOWN. NO RESP DISTRESS NOTED. RELIABILITY TECHNICIANS IN PLACE. IV IN PLACE & PATENT ON RFA 20G SALINE LOCKED. BED IN LOW POSITION & LOCKED, SIDE RAILS UP X3. BED ALARM ON. CALL LIGHT WITH IN REACH.
[2020-06-18 20:00] VITALS: BP 115/72
[2020-06-19] VITALS: BP 108/66
[2020-06-19 04:00] VITALS: BP 107/62
[2020-06-19 06:27] LABS: BASOPHILS % (AUTO) 1.1 % (0.0-2.0); HEMOGLOBIN 11.3 G/DL (12.0-16.0); LYMPHOCYTES % (AUTO) 21.3 % (20.0-45.0); MEAN CORPUSCULAR VOLUME 94 FL (80-99); MONOCYTES % (AUTO) 10.2 % (1.0-10.0); NEUTROPHILS % (AUTO) 66.5 % (45.0-75.0); PLATELET COUNT 173 K/UL (150-450); RED BLOOD COUNT 3.82 M/UL (4.20-5.40); RED CELL DISTRIBUTION WIDTH 13.2 % (11.6-14.8)
[2020-06-19 06:46] LABS: CALCIUM 9.5 MG/DL (8.5-10.1); CREATININE 1.5 MG/DL (0.55-1.30); POTASSIUM 4.2 MMOL/L (3.5-5.1)
--- NOTE | 2020-06-19 07:07 | NUR ---
NURSE HAND-OFF REPORT: Important Events on Shift:[ HAD AN EPISODE OF SR WITH FIRST DEGREE AVB, DR. VEGA MADE AWARE] Patient Status: [FULL CODE] Diet: [CARDIAC EASY CHEW] Pending Orders: [] Pending Results/Labs:[] Pending MD notification:[] Latest Vital Signs: Temperature 97.1 , Pulse 89 , B/P 107 /62 , Respiratory Rate 20 , O2 SAT 96 , Room Air, O2 Flow Rate . Vital Sign Comment: [] EKG Rhythm: SR WITH 1ST DEGREE AVB Rhythm change?: Y MD Notified?: N -Dr. Luis VARGHESE Response: Message left await call Latest Dorsey Fall Score: 35 Fall Risk: Medium Risk Safety Measures: Call light Within Reach, Bed Alarm Zone 1, Side Rails Side Rails x2, Bed position Low and Locked. Fall Precautions: Yellow Socks Yellow Gown Door Sign Patient Fall Education Report given to [SMILEY VENTURA].
--- NOTE | 2020-06-19 07:22 | NUR ---
NURSE NOTES: Received patient in bed. Awake, A/O x3. IV in the Right FA, site intact. On room air, respirations unlabored. Bed low and locked, side rails up x2, call light within reach with return demonstration.
[2020-06-19 07:51] VITALS: BP 107/69
[2020-06-19] MEDS: Eliquis 2.5mg tablet ORAL SCH ×2 (08:41→17:17)
[2020-06-19] MEDS: Metoprolol Tartrate 50mg tab ORAL SCH ×2 (08:41→21:00)
--- NOTE | 2020-06-19 10:00 | NUR ---
CASE MANAGEMENT:REVIEW 06/19/20 SI: CHEST PAIN. AFIB W/RVR 98.8 98 17 107/69 99% ON RA H/H-11.7/36.3 BUN+32 CR+1.5 IS: ELIQUIS 2.5MG PO BID LOPRESSOR 50MG PO Q12 KEPPRA 250MG PO BID PLAVIX 75MG PO QD ULTRAM PO Q4HRS PRN : TELEMETRY STATUS DCP: FROM HOME PLAN: STRESS TEST NON ISCHEMIC AWAIT CARDIAC CLEARANCE FOR DISCHARGE
--- NOTE | 2020-06-19 10:18 | Pulmonology Progress Note ---
Subjective Interval Events: Feeling well Constitutional: Reports: no symptoms HEENT: Repors: no symptoms Respiratory: Reports: no symptoms Cardiovascular: Reports: no symptoms Gastrointestinal/Abdominal: Reports: no symptoms Allergies: Coded Allergies: ASPIRIN (Unverified Adverse Reaction, Unknown, 05/08/16) Objective Last 24 Hour Vital Signs Date Time Temp Pulse Resp B/P (MAP) Pulse Ox O2 Delivery O2 Flow Rate FiO2 06/19/20 08:41 98 107/69 06/19/20 08:03 Room Air 06/19/20 08:00 93 06/19/20 07:51 98.8 98 17 107/69 (82) 99 98 06/19/20 04:00 97.1 88 20 107/62 (77) 96 82 06/19/20 04:00 89 06/19/20 00:00 95 06/19/20 00:00 98.7 93 18 108/66 (80) 98 82 06/18/20 21:00 Room Air 06/18/20 20:43 98 118/72 06/18/20 20:00 103 06/18/20 20:00 98.8 98 18 115/72 (86) 98 82 06/18/20 16:00 81 06/18/20 16:00 97.2 82 18 110/60 (77) 97 82 06/18/20 12:00 96 06/18/20 12:00 97.0 97 20 123/75 (91) 98 98 Intake and Output 06/18/20 06/19/20 19:00 07:00 Intake Total 120 ml 320 ml Output Total 450 ml Balance -330 ml 320 ml Intake Oral 120 ml 320 ml Output Urine Total 450 ml # Voids 3 General Appearance: no acute distress HEENT: normocephalic Respiratory: chest wall non-tender, lungs clear Cardiovascular: normal peripheral pulses, normal rate Abdomen: normal bowel sounds Laboratory Tests 06/19/20 05:01: White Blood Count 4.0L, Red Blood Count 3.82L, Hemoglobin 11.3L, Hematocrit 36.0L, Mean Corpuscular Volume 94, Mean Corpuscular Hemoglobin 29.7, Mean Corpuscular Hemoglobin Concent 31.5L, Red Cell Distribution Width 13.2, Platelet Count 173, Mean Platelet Volume 7.2, Neutrophils (%) (Auto) 66.5, Lymphocytes (%) (Auto) 21.3, Monocytes (%) (Auto) 10.2H, Eosinophils (%) (Auto) 1.0, Basophils (%) (Auto) 1.1, Sodium Level 139, Potassium Level 4.2, Chloride Level 102, Carbon Dioxide Level 27, Anion Gap 10, Blood Urea Nitrogen 32H, Creatinine 1.5H, Estimat Glomerular Filtration Rate 39.9, Glucose Level 90, Calcium Level 9.5 Current Medications Medications (Trade) Dose Ordered Sig/Van Route PRN Reason Start Time Stop Time Status Last Admin Dose Admin Apixaban (Eliquis) 2.5 mg BID ORAL 06/16/20 18:00 09/14/20 17:59 06/19/20 08:41 Clopidogrel Bisulfate (Plavix) 75 mg DAILY ORAL 06/16/20 09:00 07/16/20 08:59 06/19/20 08:41 Levetiracetam (Keppra) 250 mg TWICE A DAY ORAL 06/16/20 09:00 07/31/20 08:59 06/19/20 08:41 Metoprolol Tartrate (Lopressor) 50 mg EVERY 12 HOURS ORAL 06/16/20 11:55 09/14/20 11:54 06/19/20 08:41 Nitroglycerin (Ntg) 0.4 mg Q5M PRN SL Prn Chest Pain 06/15/20 18:00 07/15/20 17:59 Regadenoson (Lexiscan) 0.4 mg ONCE PRN IV CARDIOLOGY 06/17/20 16:35 06/19/20 23:59 06/18/20 11:38 Temazepam (Restoril) 15 mg HSPRN PRN ORAL Insomnia 06/16/20 02:00 06/23/20 01:59 Tramadol HCl (Ultram) 50 mg Q4H PRN ORAL For Pain 06/16/20 01:00 06/23/20 00:59 06/17/20 15:09 Assessment/Plan Assessment/Plan IMPRESSION: 1. Chest pain,resolved 2. Troponin negatives. 3. A fib DISCUSSION: I Chest pain resolved Heart rate controlled Seen by cardiology DC planning Saturating well on RA Tera Tirmizi, M.D. Tirmizi,Tera Elías MD Jun 19, 2020 10:18
--- NOTE | 2020-06-19 10:33 | General Progress Note ---
Subjective Allergies: Coded Allergies: ASPIRIN (Unverified Adverse Reaction, Unknown, 05/08/16) Subjective more awake sob better weakness episode of afib resolved Objective Last 24 Hour Vital Signs Date Time Temp Pulse Resp B/P (MAP) Pulse Ox O2 Delivery O2 Flow Rate FiO2 06/19/20 08:41 98 107/69 06/19/20 08:03 Room Air 06/19/20 08:00 93 06/19/20 07:51 98.8 98 17 107/69 (82) 99 98 06/19/20 04:00 97.1 88 20 107/62 (77) 96 82 06/19/20 04:00 89 06/19/20 00:00 95 06/19/20 00:00 98.7 93 18 108/66 (80) 98 82 06/18/20 21:00 Room Air 06/18/20 20:43 98 118/72 06/18/20 20:00 103 06/18/20 20:00 98.8 98 18 115/72 (86) 98 82 06/18/20 16:00 81 06/18/20 16:00 97.2 82 18 110/60 (77) 97 82 06/18/20 12:00 96 06/18/20 12:00 97.0 97 20 123/75 (91) 98 98 Intake and Output 06/18/20 06/19/20 19:00 07:00 Intake Total 120 ml 320 ml Output Total 450 ml Balance -330 ml 320 ml Intake Oral 120 ml 320 ml Output Urine Total 450 ml # Voids 3 Laboratory Tests 06/19/20 05:01: White Blood Count 4.0L, Red Blood Count 3.82L, Hemoglobin 11.3L, Hematocrit 36.0L, Mean Corpuscular Volume 94, Mean Corpuscular Hemoglobin 29.7, Mean Corpuscular Hemoglobin Concent 31.5L, Red Cell Distribution Width 13.2, Platelet Count 173, Mean Platelet Volume 7.2, Neutrophils (%) (Auto) 66.5, Lymphocytes (%) (Auto) 21.3, Monocytes (%) (Auto) 10.2H, Eosinophils (%) (Auto) 1.0, Basophils (%) (Auto) 1.1, Sodium Level 139, Potassium Level 4.2, Chloride Level 102, Carbon Dioxide Level 27, Anion Gap 10, Blood Urea Nitrogen 32H, Creatinine 1.5H, Estimat Glomerular Filtration Rate 39.9, Glucose Level 90, Calcium Level 9.5 Height (Feet): 5 Height (Inches): 6.00 Weight (Pounds): 120 General Appearance: alert EENT: PERRL/EOMI Neck: supple Cardiovascular: normal rate Respiratory/Chest: lungs clear Pelvis: no masses Extremities: normal inspection Assessment/Plan Status: stable Assessment/Plan: 1 cp r/o ed out mi stress test negative 2 sob 3weakness 4 failure of thrive 5 afib with rvr cardio on the case cardiac w/u cont current tpt/ot dc plan to Dao Webster MD Jun 19, 2020 10:33
[2020-06-19 12:00] VITALS: BP 92/60
--- NOTE | 2020-06-19 12:35 | Cardiac Electrophysiology PN ---
Assessment/Plan Assessment/Plan 1. Atrial fibrillation with rapid ventricular response. On metoprolol 50 mg b.i.d. and low dose Eliquis 2.5 mg b.i.d. in view of creatinine of 1.6 as well as her age of 85. 2. CP. Due to atrial fib with RVR. Stress test showed no ischemia Echo EF 55% 3. Hypertension. On metoprolol 50 mg b.i.d. 4. Seizures, on Keppra. 5. Hard of hearing 6. Renal failure. Cr 1.4. BMP in am DW RN Subjective Subjective No CP or SOB. Is hard of hearing. In atrial fib with controlled rate.Had Stress test that showed no ischemia. DC planning today Objective Last 24 Hour Vital Signs Date Time Temp Pulse Resp B/P (MAP) Pulse Ox O2 Delivery O2 Flow Rate FiO2 06/19/20 12:00 99.0 89 17 92/60 (71) 98 89 06/19/20 08:41 98 107/69 06/19/20 08:03 Room Air 06/19/20 08:00 93 06/19/20 07:51 98.8 98 17 107/69 (82) 99 98 06/19/20 04:00 97.1 88 20 107/62 (77) 96 82 06/19/20 04:00 89 06/19/20 00:00 95 06/19/20 00:00 98.7 93 18 108/66 (80) 98 82 06/18/20 21:00 Room Air 06/18/20 20:43 98 118/72 06/18/20 20:00 103 06/18/20 20:00 98.8 98 18 115/72 (86) 98 82 06/18/20 16:00 81 06/18/20 16:00 97.2 82 18 110/60 (77) 97 82 Intake and Output 06/18/20 06/19/20 18:59 06:59 Intake Total 120 ml 320 ml Output Total 450 ml Balance -330 ml 320 ml Intake Oral 120 ml 320 ml Output Urine Total 450 ml # Voids 3 Laboratory Tests Test 06/19/20 05:01 White Blood Count 4.0 K/UL (4.8-10.8) L Red Blood Count 3.82 M/UL (4.20-5.40) L Hemoglobin 11.3 G/DL (12.0-16.0) L Hematocrit 36.0 % (37.0-47.0) L Mean Corpuscular Volume 94 FL (80-99) Mean Corpuscular Hemoglobin 29.7 PG (27.0-31.0) Mean Corpuscular Hemoglobin Concent 31.5 G/DL (32.0-36.0) L Red Cell Distribution Width 13.2 % (11.6-14.8) Platelet Count 173 K/UL (150-450) Mean Platelet Volume 7.2 FL (6.5-10.1) Neutrophils (%) (Auto) 66.5 % (45.0-75.0) Lymphocytes (%) (Auto) 21.3 % (20.0-45.0) Monocytes (%) (Auto) 10.2 % (1.0-10.0) H Eosinophils (%) (Auto) 1.0 % (0.0-3.0) Basophils (%) (Auto) 1.1 % (0.0-2.0) Sodium Level 139 MMOL/L (136-145) Potassium Level 4.2 MMOL/L (3.5-5.1) Chloride Level 102 MMOL/L (98-107) Carbon Dioxide Level 27 MMOL/L (21-32) Anion Gap 10 mmol/L (5-15) Blood Urea Nitrogen 32 mg/dL (7-18) H Creatinine 1.5 MG/DL (0.55-1.30) H Estimat Glomerular Filtration Rate 39.9 mL/min (>60) Glucose Level 90 MG/DL (74-106) Calcium Level 9.5 MG/DL (8.5-10.1) Objective HEAD AND NECK: no JVD. LUNGS: Coarse rhonchi. CARDIOVASCULAR: Nl S1 and S2 with no gallop or murmur. ABDOMEN: Soft. EXTREMITIES: No pitting edema. Stefano Smith MD Jun 19, 2020 12:35
[2020-06-19] MEDS: traMADol 50mg tab ORAL PRN (14:37)
--- NOTE | 2020-06-19 14:45 | NUR ---
P.T Note: P.T evaluation completed and tx initiated. Pt is alert, O x 3 , follows commands appropriately , pleasant and cooperative. Pt denied c/o pain. Pt presented [place] and generalized weakness affecting her overall functional mobility independence and safety. Pt currently required MIN A X 1 for bed mobility and transfer activities. Pt able to ambulate w/o an AD however needed hand in hand/MIN A X 1 due to unsteady gait. Pt will benefit from skilled P.T service to improve her strength and endurance to increase her mobility independence and safety. Recommend SNF for short term rehab or home P.T with 24 hr. supervision. Thank you for this referral.
[2020-06-19 16:00] VITALS: BP 118/74
--- NOTE | 2020-06-19 16:15 | NUR ---
DISCHARGE PLANNING RECEIVED CALL FROM CALLIE NIELSEN WITH [facility] PATIENT HAS BEEN ACCEPTED AT [facility] COVID SWAB RESULTS PENDING WHEN IT IS TIME TO TRANSPORT TO [place], USE [facility] AUTH #[id number]
[2020-06-19] MEDS ORDERED: ELIQUIS2.5 MG ORAL (17:01)
[2020-06-19] MEDS ORDERED: METOPROLOL TART50 M1 ORAL (17:01)
[2020-06-19] MEDS ORDERED: AMBIEN5 MG ORAL (17:02)
[2020-06-19] MEDS ORDERED: TYLENOL EXTRA500 MG ORAL (17:03)
--- NOTE | 2020-06-19 17:29 | NUR ---
*-*DISCHARGE PLANNED*-* PATIENT HAS BEEN ACCEPTED AND WILL BE DISCHARGED TO: [facility] P: [phone] FOR NURSE TO NURSE REPORT ROOM# 312.C [facility] TRANSPORTATION SET FOR 6:45PM S/W HUMERA Beckett88Tristan PLACED A CALL TO ROBEL MATA, NO ANSWER, LEFT VOICE MESSAGE IN REGARDS TO THE DISCHARGED PLAN.
--- NOTE | 2020-06-19 18:25 | NUR ---
NURSE NOTES: Patient had temp of 100.5. Dr. Vann notified with orders for tylenol 650mg PO q6 PRN fever. CBC, CMP and UA. Discharge to SNF held.
--- NOTE | 2020-06-19 19:12 | NUR ---
NURSE NOTES: Urine sample collected and sent down to lab.
--- NOTE | 2020-06-19 19:13 | NUR ---
NURSE HAND-OFF REPORT: Important Events on Shift:[fever, discharge held] Patient Status: [FULL CODE] Diet: [cardiac SEC] Pending Orders: [] Pending Results/Labs:[] Pending MD notification:[] Latest Vital Signs: Temperature 98.8 , Pulse 91 , B/P 118 /74 , Respiratory Rate 18 , O2 SAT 94 , Room Air, O2 Flow Rate . Vital Sign Comment: [] EKG Rhythm: SR w/ 1st AVB Rhythm change?: N MD Notified?: N -Dr. Luis VARGHESE Response: Message left await call Latest Dorsey Fall Score: 35 Fall Risk: Medium Risk Safety Measures: Call light Within Reach, Bed Alarm Zone 1, Side Rails Side Rails x2, Bed position Low and Locked. Fall Precautions: Yellow Socks Yellow Gown Door Sign Patient Fall Education Report given to [Izaiah RN].
--- NOTE | 2020-06-19 19:15 | NUR ---
NURSE NOTES: Report received from SMILEY Bateman. Patient is awake alert and makes needs known. No SOB or distress. Patient in bed hard of hearing. Able to communicated with hands and writing. Bed at lowest position locked with side rails up.surveillance system monitor intact. Will continue with plan of care.
[2020-06-19 20:00] VITALS: BP 98/64
[2020-06-19 20:06] LABS: APPEARANCE,URINE CLEAR; BILIRUBIN, URINE NEGATIVE (NEGATIVE); GLUCOSE, URINE (UA) NEGATIVE (NEGATIVE); KETONES,URINE NEGATIVE (NEGATIVE); LEUKOCYTE ESTERASE ,URINE NEGATIVE (NEGATIVE); NITRITE,URINE NEGATIVE (NEGATIVE); PH,URINE 5 (4.5-8.0); PROTEIN,URINE 1+ (NEGATIVE); UROBILINOGEN,URINE NORMAL MG/DL (0.0-1.0)
[2020-06-19 20:13] LABS: COLOR,URINE YELLOW
[2020-06-20 04:00] VITALS: BP 107/74
--- NOTE | 2020-06-20 07:28 | NUR ---
NURSE NOTES: Patient alert and endorsed plan of care to Bella RN. Patient has plans to be DC to SNF. No fever last night. Stable.
--- NOTE | 2020-06-20 07:29 | NUR ---
NURSE NOTES: Received report from SMILEY Chiang; pt noted asleep but arousable to voice with touch d/t pt hard of hearing; Hearing aid noted at bedside charging; noted comfortable in bed; in no acute distress; able to make needs known; offered breakfast at bedside; call light within reach; bed in low position and locked; encouraged to use call light when needed; side rails up x 3; will continue current plan of care.
[2020-06-20 07:40] LABS: BASOPHILS % (AUTO) 0.9 % (0.0-2.0); EOSINOPHILS % (AUTO) 2.1 % (0.0-3.0); HEMATOCRIT 37.7 % (37.0-47.0); HEMOGLOBIN 11.8 G/DL (12.0-16.0); LYMPHOCYTES % (AUTO) 31.1 % (20.0-45.0); MEAN CORPUSCULAR VOLUME 94 FL (80-99); MONOCYTES % (AUTO) 10.5 % (1.0-10.0); NEUTROPHILS % (AUTO) 55.4 % (45.0-75.0); PLATELET COUNT 167 K/UL (150-450); RED BLOOD COUNT 3.99 M/UL (4.20-5.40); RED CELL DISTRIBUTION WIDTH 12.7 % (11.6-14.8); WHITE BLOOD COUNT 3.6 K/UL (4.8-10.8)
[2020-06-20 08:00] VITALS: BP 103/60
[2020-06-20 08:30] LABS: ALBUMIN 3.7 G/DL (3.4-5.0); ALBUMIN/GLOBULIN RATIO 1.1 (1.0-2.7); BILIRUBIN,TOTAL 0.4 MG/DL (0.2-1.0); CALCIUM 9.5 MG/DL (8.5-10.1); CREATININE 1.6 MG/DL (0.55-1.30); POTASSIUM 4.1 MMOL/L (3.5-5.1)
[2020-06-20] MEDS: Metoprolol Tartrate 50mg tab ORAL SCH ×2 (09:00→21:58)
[2020-06-20] MEDS: Eliquis 2.5mg tablet ORAL SCH ×2 (09:17→18:11)
--- NOTE | 2020-06-20 09:28 | Pulmonology Progress Note ---
Subjective Interval Events: Feeling well Constitutional: Reports: no symptoms HEENT: Repors: no symptoms Respiratory: Reports: no symptoms Cardiovascular: Reports: no symptoms Gastrointestinal/Abdominal: Reports: no symptoms Allergies: Coded Allergies: ASPIRIN (Unverified Adverse Reaction, Unknown, 05/08/16) Objective Last 24 Hour Vital Signs Date Time Temp Pulse Resp B/P (MAP) Pulse Ox O2 Delivery O2 Flow Rate FiO2 06/20/20 09:00 74 103/60 06/20/20 08:00 97.9 74 18 103/60 (74) 98 06/20/20 04:00 92 06/20/20 04:00 97.9 80 18 107/74 (85) 97 06/20/20 00:00 57 06/19/20 23:52 99.0 06/19/20 21:00 Room Air 06/19/20 21:00 71 97/64 06/19/20 20:00 87 06/19/20 20:00 100.0 89 18 98/64 (75) 97 06/19/20 17:48 98.8 06/19/20 17:00 100.5 06/19/20 16:00 99.9 83 18 118/74 (89) 94 83 06/19/20 16:00 91 06/19/20 12:00 91 06/19/20 12:00 99.0 89 17 92/60 (71) 98 89 Intake and Output 06/19/20 06/20/20 19:00 07:00 Intake Total 300 ml Balance 300 ml Intake Oral 300 ml General Appearance: no acute distress HEENT: normocephalic Respiratory: chest wall non-tender, lungs clear Cardiovascular: normal peripheral pulses, normal rate Abdomen: normal bowel sounds Microbiology Date/Time Source Procedure Growth Status 06/19/20 15:26 Nasopharynx SARS-CoV-2 RdRp Gene Assay - Final Complete Laboratory Tests 06/19/20 18:25: Urine Color Yellow, Urine Appearance Clear, Urine pH 5, Urine Specific [place] 1.020, Urine Protein 1+H, Urine Glucose (UA) Negative, Urine Ketones Negative, Urine Blood Negative, Urine Nitrite Negative, Urine Bilirubin Negative, Urine Urobilinogen Normal, Urine Leukocyte Esterase Negative, Urine RBC 0-2, Urine WBC 0-2, Urine Squamous Epithelial Cells Few, Urine Bacteria Few 06/20/20 05:35: White Blood Count 3.6L, Red Blood Count 3.99L, Hemoglobin 11.8L, Hematocrit 37.7, Mean Corpuscular Volume 94, Mean Corpuscular Hemoglobin 29.5, Mean Corpuscular Hemoglobin Concent 31.3L, Red Cell Distribution Width 12.7, Platelet Count 167, Mean Platelet Volume 7.2, Neutrophils (%) (Auto) 55.4, Lymphocytes (%) (Auto) 31.1, Monocytes (%) (Auto) 10.5H, Eosinophils (%) (Auto) 2.1, Basophils (%) (Auto) 0.9, Sodium Level 138, Potassium Level 4.1, Chloride Level 102, Carbon Dioxide Level 27, Anion Gap 9, Blood Urea Nitrogen 32H, Creatinine 1.6H, Estimat Glomerular Filtration Rate 37.1, Glucose Level 82, Calcium Level 9.5, Total Bilirubin 0.4, Aspartate Amino Transf (AST/SGOT) 18, Alanine Aminotransferase (ALT/SGPT) 7L, Alkaline Phosphatase 46, Total Protein 7.2, Albumin 3.7, Globulin 3.5, Albumin/Globulin Ratio 1.1 Current Medications Medications (Trade) Dose Ordered Sig/Van Route PRN Reason Start Time Stop Time Status Last Admin Dose Admin Acetaminophen (Tylenol) 650 mg Q6H PRN ORAL Temp >100.5 06/19/20 17:15 07/19/20 17:14 06/19/20 17:18 Apixaban (Eliquis) 2.5 mg BID ORAL 06/16/20 18:00 09/14/20 17:59 06/20/20 09:17 Clopidogrel Bisulfate (Plavix) 75 mg DAILY ORAL 06/16/20 09:00 07/16/20 08:59 06/20/20 09:17 Levetiracetam (Keppra) 250 mg TWICE A DAY ORAL 06/16/20 09:00 07/31/20 08:59 06/20/20 09:17 Metoprolol Tartrate (Lopressor) 50 mg EVERY 12 HOURS ORAL 06/16/20 11:55 09/14/20 11:54 06/19/20 08:41 Nitroglycerin (Ntg) 0.4 mg Q5M PRN SL Prn Chest Pain 06/15/20 18:00 07/15/20 17:59 Temazepam (Restoril) 15 mg HSPRN PRN ORAL Insomnia 06/16/20 02:00 06/23/20 01:59 Tramadol HCl (Ultram) 50 mg Q4H PRN ORAL For Pain 06/16/20 01:00 06/23/20 00:59 06/19/20 14:37 Assessment/Plan Assessment/Plan IMPRESSION: 1. Chest pain,resolved 2. Troponin negatives. 3. A fib DISCUSSION: I Chest pain resolved Heart rate controlled Seen by cardiology DC planning Saturating well on RA Lamont Adame Omar Syed MD Jun 20, 2020 09:28
--- NOTE | 2020-06-20 10:30 | NUR ---
NURSE NOTES: SNF requested for another covid swab since patient had fever. Received order from Dr. Vann . Will carry out.
[2020-06-20 12:00] VITALS: BP 103/76
--- NOTE | 2020-06-20 12:00 | Cardiac Electrophysiology PN ---
Assessment/Plan Assessment/Plan 1. Atrial fibrillation with rapid ventricular response. On metoprolol 50 mg b.i.d. and low dose Eliquis 2.5 mg b.i.d. in view of creatinine of 1.6 as well as her age of 85. 2. CP. Due to atrial fib with RVR. Stress test showed no ischemia Echo EF 55% 3. Hypertension. On metoprolol 50 mg b.i.d. 4. Seizures, on Keppra. 5. Hard of hearing 6. Renal failure. Cr 1.4. BMP in am DW RN DC to SNIF pending Subjective Subjective No CP or SOB. Is hard of hearing. In atrial fib with controlled rate. Stress test showed no ischemia. DC planning postponed to today for fever Objective Last 24 Hour Vital Signs Date Time Temp Pulse Resp B/P (MAP) Pulse Ox O2 Delivery O2 Flow Rate FiO2 06/20/20 09:00 74 103/60 06/20/20 08:00 97.9 74 18 103/60 (74) 98 06/20/20 04:00 92 06/20/20 04:00 97.9 80 18 107/74 (85) 97 06/20/20 00:00 57 06/19/20 23:52 99.0 06/19/20 21:00 Room Air 06/19/20 21:00 71 97/64 06/19/20 20:00 87 06/19/20 20:00 100.0 89 18 98/64 (75) 97 06/19/20 17:48 98.8 06/19/20 17:00 100.5 06/19/20 16:00 99.9 83 18 118/74 (89) 94 83 06/19/20 16:00 91 06/19/20 12:00 91 06/19/20 12:00 99.0 89 17 92/60 (71) 98 89 Intake and Output 06/19/20 06/20/20 19:00 07:00 Intake Total 300 ml Balance 300 ml Intake Oral 300 ml Laboratory Tests Test 06/19/20 18:25 06/20/20 05:35 Urine Color Yellow Urine Appearance Clear Urine pH 5 (4.5-8.0) Urine Specific [place] 1.020 (1.005-1.035) Urine Protein 1+ (NEGATIVE) H Urine Glucose (UA) Negative (NEGATIVE) Urine Ketones Negative (NEGATIVE) Urine Blood Negative (NEGATIVE) Urine Nitrite Negative (NEGATIVE) Urine Bilirubin Negative (NEGATIVE) Urine Urobilinogen Normal MG/DL (0.0-1.0) Urine Leukocyte Esterase Negative (NEGATIVE) Urine RBC 0-2 /HPF (0 - 2) Urine WBC 0-2 /HPF (0 - 2) Urine Squamous Epithelial Cells Few /LPF (NONE/OCC) Urine Bacteria Few /HPF (NONE) White Blood Count 3.6 K/UL (4.8-10.8) L Red Blood Count 3.99 M/UL (4.20-5.40) L Hemoglobin 11.8 G/DL (12.0-16.0) L Hematocrit 37.7 % (37.0-47.0) Mean Corpuscular Volume 94 FL (80-99) Mean Corpuscular Hemoglobin 29.5 PG (27.0-31.0) Mean Corpuscular Hemoglobin Concent 31.3 G/DL (32.0-36.0) L Red Cell Distribution Width 12.7 % (11.6-14.8) Platelet Count 167 K/UL (150-450) Mean Platelet Volume 7.2 FL (6.5-10.1) Neutrophils (%) (Auto) 55.4 % (45.0-75.0) Lymphocytes (%) (Auto) 31.1 % (20.0-45.0) Monocytes (%) (Auto) 10.5 % (1.0-10.0) H Eosinophils (%) (Auto) 2.1 % (0.0-3.0) Basophils (%) (Auto) 0.9 % (0.0-2.0) Sodium Level 138 MMOL/L (136-145) Potassium Level 4.1 MMOL/L (3.5-5.1) Chloride Level 102 MMOL/L (98-107) Carbon Dioxide Level 27 MMOL/L (21-32) Anion Gap 9 mmol/L (5-15) Blood Urea Nitrogen 32 mg/dL (7-18) H Creatinine 1.6 MG/DL (0.55-1.30) H Estimat Glomerular Filtration Rate 37.1 mL/min (>60) Glucose Level 82 MG/DL (74-106) Calcium Level 9.5 MG/DL (8.5-10.1) Total Bilirubin 0.4 MG/DL (0.2-1.0) Aspartate Amino Transf (AST/SGOT) 18 U/L (15-37) Alanine Aminotransferase (ALT/SGPT) 7 U/L (12-78) L Alkaline Phosphatase 46 U/L (46-116) Total Protein 7.2 G/DL (6.4-8.2) Albumin 3.7 G/DL (3.4-5.0) Globulin 3.5 g/dL Albumin/Globulin Ratio 1.1 (1.0-2.7) Microbiology Date/Time Source Procedure Growth Status 06/19/20 15:26 Nasopharynx SARS-CoV-2 RdRp Gene Assay - Final Complete Objective HEAD AND NECK: no JVD. LUNGS: Coarse rhonchi. CARDIOVASCULAR: Nl S1 and S2 with no gallop or murmur. ABDOMEN: Soft. EXTREMITIES: No pitting edema. Stefano Smith MD Jun 20, 2020 12:00
[2020-06-20] MEDS ORDERED: NS 250 ML IVPB ONE (12:30)
--- NOTE | 2020-06-20 13:09 | General Progress Note ---
Subjective Allergies: Coded Allergies: ASPIRIN (Unverified Adverse Reaction, Unknown, 05/08/16) Subjective awake fever with hypotension sob better weakness episode of afib resolved Objective Last 24 Hour Vital Signs Date Time Temp Pulse Resp B/P (MAP) Pulse Ox O2 Delivery O2 Flow Rate FiO2 06/20/20 09:00 74 103/60 06/20/20 08:00 97.9 74 18 103/60 (74) 98 06/20/20 04:00 92 06/20/20 04:00 97.9 80 18 107/74 (85) 97 06/20/20 00:00 57 06/19/20 23:52 99.0 06/19/20 21:00 Room Air 06/19/20 21:00 71 97/64 06/19/20 20:00 87 06/19/20 20:00 100.0 89 18 98/64 (75) 97 06/19/20 17:48 98.8 06/19/20 17:00 100.5 06/19/20 16:00 99.9 83 18 118/74 (89) 94 83 06/19/20 16:00 91 Intake and Output 06/19/20 06/20/20 19:00 07:00 Intake Total 300 ml Balance 300 ml Intake Oral 300 ml Laboratory Tests 06/19/20 18:25: Urine Color Yellow, Urine Appearance Clear, Urine pH 5, Urine Specific [place] 1.020, Urine Protein 1+H, Urine Glucose (UA) Negative, Urine Ketones Negative, Urine Blood Negative, Urine Nitrite Negative, Urine Bilirubin Negative, Urine Urobilinogen Normal, Urine Leukocyte Esterase Negative, Urine RBC 0-2, Urine WBC 0-2, Urine Squamous Epithelial Cells Few, Urine Bacteria Few 06/20/20 05:35: White Blood Count 3.6L, Red Blood Count 3.99L, Hemoglobin 11.8L, Hematocrit 37.7, Mean Corpuscular Volume 94, Mean Corpuscular Hemoglobin 29.5, Mean Corpuscular Hemoglobin Concent 31.3L, Red Cell Distribution Width 12.7, Platelet Count 167, Mean Platelet Volume 7.2, Neutrophils (%) (Auto) 55.4, Lymphocytes (%) (Auto) 31.1, Monocytes (%) (Auto) 10.5H, Eosinophils (%) (Auto) 2.1, Basophils (%) (Auto) 0.9, Sodium Level 138, Potassium Level 4.1, Chloride Level 102, Carbon Dioxide Level 27, Anion Gap 9, Blood Urea Nitrogen 32H, Creatinine 1.6H, Estimat Glomerular Filtration Rate 37.1, Glucose Level 82, Calcium Level 9.5, Total Bilirubin 0.4, Aspartate Amino Transf (AST/SGOT) 18, Alanine Aminotransferase (ALT/SGPT) 7L, Alkaline Phosphatase 46, Total Protein 7.2, Albumin 3.7, Globulin 3.5, Albumin/Globulin Ratio 1.1 Height (Feet): 5 Height (Inches): 6.00 Weight (Pounds): 120 General Appearance: alert Neck: supple Cardiovascular: regular rhythm Respiratory/Chest: lungs clear Abdomen: non tender, soft Edema: trace edema Neurologic: motor weakness Skin: warm/dry Assessment/Plan Status: stable Assessment/Plan: 1 rec fever with hypotension 2 leucopenia r/o sepsis 3weakness 4 failure of thrive 5 afib with rvr cardio on the case id consult hold Dao Gordon MD Jun 20, 2020 13:09
[2020-06-20 16:00] VITALS: BP 103/76
--- NOTE | 2020-06-20 19:31 | NUR ---
NURSE HAND-OFF REPORT: Important Events on Shift: Discharge canceled Patient Status: Stable Diet: Cardiac Pending Orders: NA Pending Results/Labs:NA Pending MD notification:Na Latest Vital Signs: Temperature 99.1 , Pulse 98 , B/P 103 /76 , Respiratory Rate 18 , O2 SAT 97 , Room Air, O2 Flow Rate . Vital Sign Comment: stable EKG Rhythm: Atrial Fibrillation Rhythm change?: N MD Notified?: N -Dr. Luis VARGHESE Response: Message left await call Latest Dorsey Fall Score: 35 Fall Risk: Medium Risk Safety Measures: Call light Within Reach, Bed Alarm Zone 1, Side Rails Side Rails x2, Bed position Low and Locked. Fall Precautions: Yellow Socks Yellow Gown Door Sign Patient Fall Education Report given to Fredi/RN.
--- NOTE | 2020-06-20 19:49 | NUR ---
NURSE NOTES: Report received from Shama REIS. Patient is noted to be awake and alert x 3. Patient is noted to be on room air with no complaints of chest pain or shortness of breath at this time. Patient does not appear to be in respiratory distress at this time. Patient is noted to be hard of hearing, however, has hearing aid in left ear. Hearing aid tow bar driver is noted to be at bed side table. Patient is noted to have right forearm 20 tim IV access. Was endorsed to Fredi REIS that patient's discharge has been delayed due to patient having a fever. Patient's most recent temperature is 99.1. Patient has complaints of tooth pain at this time. Fredi REIS educated patient that he will administer pain medication per MD orders. Bed is locked, alarmed, and in lowest position. Will continue to monitor temperature and follow plan of care.
[2020-06-20 20:00] VITALS: BP 104/76
[2020-06-21] VITALS (7 sets, daily range): BP systolic 90–125; BP diastolic 54–83
--- NOTE | 2020-06-21 07:15 | NUR ---
NURSE HAND-OFF REPORT: Important Events on Shift: patient slept through out the shift. patient continues to have a blood pressure with a systolic in the low 100's. Patient Status: full code Diet:cardiac soft easy chew Pending Orders: none Pending Results/Labs:none Pending MD notification:none Latest Vital Signs: Temperature 97.7 , Pulse 99 , B/P 100 /61 , Respiratory Rate 16 , O2 SAT 96 , Room Air, O2 Flow Rate . Vital Sign Comment: within normal limits, continue to monitor blood pressure. EKG Rhythm: SR w/ 1st degree AVB and PAC Rhythm change?: N MD Notified?: MD Response: Latest Dorsey Fall Score: 35 Fall Risk: Medium Risk Safety Measures: Call light Within Reach, Bed Alarm Zone 1, Side Rails Side Rails x2, Bed position Low and Locked. Fall Precautions: Yellow Socks Yellow Gown Door Sign Patient Fall Education Report given to Katya REIS. Report given to .
--- NOTE | 2020-06-21 07:16 | NUR ---
NURSE NOTES: Pt AOX3; noted comfortable in bed watching TV; offered breakfast at bedside; in no acute distress; hearing aid in place on L ear; bedside locked and in low position; side rails x 3; side rails padded for seizure precautions; call light within reach; with bedside commode; will continue to monitor.
[2020-06-21] MEDS: Metoprolol Tartrate 50mg tab ORAL SCH ×2 (08:26→21:00)
[2020-06-21] MEDS: Eliquis 2.5mg tablet ORAL SCH ×2 (08:26→17:16)
--- NOTE | 2020-06-21 09:19 | NUR ---
NURSE NOTES: Contacted Dr. Vann to get an order for PRN laxative d/t pt has not had bowel movement since 06/16/20; no c/o abdominal discomfort; no c/o nausea; no abdominal distention noted. Awaiting for MD response.
--- NOTE | 2020-06-21 11:04 | Pulmonology Progress Note ---
Subjective Interval Events: Feeling well Constitutional: Reports: no symptoms HEENT: Repors: no symptoms Respiratory: Reports: no symptoms Cardiovascular: Reports: no symptoms Gastrointestinal/Abdominal: Reports: no symptoms Allergies: Coded Allergies: ASPIRIN (Unverified Adverse Reaction, Unknown, 05/08/16) Objective Last 24 Hour Vital Signs Date Time Temp Pulse Resp B/P (MAP) Pulse Ox O2 Delivery O2 Flow Rate FiO2 06/21/20 09:00 Room Air 06/21/20 08:26 86 125/76 06/21/20 08:00 152 06/21/20 08:00 97.7 86 18 125/76 (92) 99 06/21/20 04:00 97.7 97 16 100/61 (74) 96 06/21/20 04:00 99 06/21/20 00:00 98.1 95 14 106/71 (83) 95 06/21/20 00:00 103 06/20/20 21:58 97 104/76 06/20/20 21:00 Room Air 06/20/20 20:00 104 06/20/20 20:00 99.0 90 16 104/76 (85) 97 06/20/20 17:00 98 06/20/20 16:00 99.1 87 18 103/76 (85) 97 98 06/20/20 12:00 89 06/20/20 12:00 99.5 89 18 103/76 (85) 98 06/20/20 12:00 Room Air 06/20/20 12:00 99.5 89 18 103/76 (85) 18 Intake and Output 06/20/20 06/21/20 19:00 07:00 Intake Total 630 ml Output Total 600 ml Balance 30 ml Intake Oral 630 ml Output Urine Total 600 ml # Voids 1 1 General Appearance: no acute distress HEENT: normocephalic Respiratory: chest wall non-tender, lungs clear Cardiovascular: normal peripheral pulses, normal rate Abdomen: normal bowel sounds Microbiology Date/Time Source Procedure Growth Status 06/20/20 11:28 Nasopharynx SARS-CoV-2 RdRp Gene Assay - Final Complete 06/19/20 15:26 Nasopharynx SARS-CoV-2 RdRp Gene Assay - Final Complete Current Medications Medications (Trade) Dose Ordered Sig/Van Route PRN Reason Start Time Stop Time Status Last Admin Dose Admin Acetaminophen (Tylenol) 650 mg Q6H PRN ORAL Temp >100.5 06/19/20 17:15 07/19/20 17:14 06/19/20 17:18 Apixaban (Eliquis) 2.5 mg BID ORAL 06/16/20 18:00 09/14/20 17:59 06/21/20 08:26 Clopidogrel Bisulfate (Plavix) 75 mg DAILY ORAL 06/16/20 09:00 07/16/20 08:59 06/21/20 08:27 Levetiracetam (Keppra) 250 mg TWICE A DAY ORAL 06/16/20 09:00 07/31/20 08:59 06/21/20 08:26 Metoprolol Tartrate (Lopressor) 50 mg EVERY 12 HOURS ORAL 06/16/20 11:55 09/14/20 11:54 06/21/20 08:26 Nitroglycerin (Ntg) 0.4 mg Q5M PRN SL Prn Chest Pain 06/15/20 18:00 07/15/20 17:59 Temazepam (Restoril) 15 mg HSPRN PRN ORAL Insomnia 06/16/20 02:00 06/23/20 01:59 Tramadol HCl (Ultram) 50 mg Q4H PRN ORAL For Pain 06/16/20 01:00 06/23/20 00:59 06/19/20 14:37 Assessment/Plan Assessment/Plan IMPRESSION: 1. Chest pain,resolved 2. Troponin negatives. 3. A fib DISCUSSION: Chest pain resolved Heart rate controlled Seen by cardiology Ok to dc Saturating well on RA Lamont Adame Omar Syed MD Jun 21, 2020 11:03
--- NOTE | 2020-06-21 11:45 | Consultation ---
DATE OF CONSULTATION: 06/21/2020 INFECTIOUS DISEASES CONSULTATION CONSULTING PHYSICIAN: Robby Don MD. REFERRING PHYSICIAN: Suresh Vann MD. REASON FOR CONSULTATION: Possible urinary tract infection. HISTORY OF PRESENT ILLNESS: This is an 85-year-old lady with history of coronary artery disease, dementia, seizures who comes in with shortness of breath and chest pain. She was found to be dehydrated. There was a concern for urinary tract infection and an Infectious Diseases consultation has been obtained for antibiotics. PAST MEDICAL HISTORY: 1. History of coronary artery disease. 2. Seizures. 3. Dementia. SOCIAL HISTORY: Unknown. FAMILY HISTORY: Unknown. REVIEW OF SYSTEMS: Unable to obtain currently. MEDICATIONS: As an inpatient, she is on Tylenol, Eliquis, metoprolol, Keppra, Plavix, Restoril, Ultram, nitroglycerin. ALLERGIES: She is allergic to aspirin. PHYSICAL EXAMINATION: VITAL SIGNS: Temperature 97.7, T-max of 100.5, pulse of 86, respiratory rate 18, blood pressure 125/76, O2 saturation of 99%. HEENT: Pupils are equally reactive to light and accommodation. Mouth appears clean without thrush. NECK: Supple. No adenopathy. No JVD. CARDIOVASCULAR: Regular rate and rhythm. No murmurs. LUNGS: Clear to auscultation bilaterally. No crackles. No wheezes. ABDOMEN: Soft and nontender. No organomegaly. EXTREMITIES: No cyanosis, no clubbing, no edema. LABORATORY AND DIAGNOSTIC DATA: White count 3.6, hemoglobin 11.8, hematocrit 37.7, MCV 94, platelet count of 167 with neutrophils of 55%. Sodium 138, potassium 4.1, chloride 102, bicarb 27, BUN 32, creatinine 1.6, glucose 82, calcium 9.5. Total bilirubin 0.4, AST 18, ALT 7, alkaline phosphatase 46, total protein 7.2, albumin 3.7. UA showing 0 to 2 white cells. On 06/20/2020 COVID-19 test is negative. On 06/19/2020, COVID-19 test is negative. Chest x-ray is showing no acute process. A 2D echo showing left ventricular hypertrophy, trace aortic regurgitation, trace mitral regurgitation, mild tricuspid regurgitation. ASSESSMENT: This is an 85-year-old lady with history of dementia, seizures, coronary artery disease who comes in with shortness of breath and chest pain and is found to have. 1. Fevers, would like to rule out urinary tract infection. 2. Coronary artery disease. 3. Dementia. 4. Atrial fibrillation. PLAN: 1. We will start the patient on ceftriaxone. 2. We will order urine cultures. 3. We will follow up cultures and adjust antibiotics accordingly. I would like to thank, Dr. Vann, for this consultation. Robby Don M.D. DR: Sudhakar JOB#: [id number] CC: Suresh Vann M.D.; Fax#: [phone]
--- NOTE | 2020-06-21 11:45 | NUR ---
NURSE NOTES: [facility] called c/o Edith regarding when pt will be discharged to the facility. Informed her that Dr. Vann held transfer order yesterday and pt has new IV atb Ceftriaxone 1 gm order today. Will continue to monitor.
[2020-06-21] MEDS: cefTRIAXone 1 GM in D5W 55 ML IVPB SCH (12:03)
--- NOTE | 2020-06-21 13:50 | NUR ---
NURSE NOTES: With new order from Dr. Vann to transfer pt to [facility] unit as well as MOM 30 ml PO PRN BID for constipation. Administered MOM as ordered. Will continue to monitor.
--- NOTE | 2020-06-21 14:00 | General Progress Note ---
Subjective Allergies: Coded Allergies: ASPIRIN (Unverified Adverse Reaction, Unknown, 05/08/16) Subjective awake fever with hypotension sob better weakness episode of afib resolved Objective Last 24 Hour Vital Signs Date Time Temp Pulse Resp B/P (MAP) Pulse Ox O2 Delivery O2 Flow Rate FiO2 06/21/20 12:00 97.9 94 18 124/83 (97) 99 94 06/21/20 12:00 94 06/21/20 09:00 Room Air 06/21/20 08:26 86 125/76 06/21/20 08:00 152 06/21/20 08:00 97.7 86 18 125/76 (92) 99 06/21/20 04:00 97.7 97 16 100/61 (74) 96 06/21/20 04:00 99 06/21/20 00:00 98.1 95 14 106/71 (83) 95 06/21/20 00:00 103 06/20/20 21:58 97 104/76 06/20/20 21:00 Room Air 06/20/20 20:00 104 06/20/20 20:00 99.0 90 16 104/76 (85) 97 06/20/20 17:00 98 06/20/20 16:00 99.1 87 18 103/76 (85) 97 98 Intake and Output 06/20/20 06/21/20 19:00 07:00 Intake Total 630 ml Output Total 600 ml Balance 30 ml Intake Oral 630 ml Output Urine Total 600 ml # Voids 1 1 Height (Feet): 5 Height (Inches): 6.00 Weight (Pounds): 120 General Appearance: alert EENT: PERRL/EOMI Neck: non-tender, supple Cardiovascular: regular rhythm Respiratory/Chest: lungs clear Assessment/Plan Status: stable Assessment/Plan: 1 rec fever with hypotension 2 leucopenia r/o sepsis 3weakness 4 failure of thrive 5 afib with rvr cardio on the case id consult hold Dao Gordon MD Jun 21, 2020 14:00
[2020-06-21] MEDS ORDERED: Milk of Magnesia 30ml Ud ORAL PRN (15:00)
--- NOTE | 2020-06-21 16:11 | Cardiac Electrophysiology PN ---
Assessment/Plan Assessment/Plan 1. Atrial fibrillation with rapid ventricular response. On metoprolol 50 mg b.i.d. and Eliquis 2.5 mg b.i.d. in view of creatinine of 1.6 as well as her age of 85. 2. CP. Due to atrial fib with RVR. Stress test showed no ischemia. EF 55% 3. Hypertension. On metoprolol 50 mg b.i.d. 4. Seizures, on Keppra. 5. Hard of hearing 6. Renal failure. Cr 1.6. 7. Fever on Abx per ID DW RN Subjective Subjective No CP or SOB. Is hard of hearing. In atrial fib with controlled rate. Stress test showed no ischemia. DC planning postponed for fever Transfer to [facility] pending Objective Last 24 Hour Vital Signs Date Time Temp Pulse Resp B/P (MAP) Pulse Ox O2 Delivery O2 Flow Rate FiO2 06/21/20 15:40 98.2 87 18 102/70 (81) 97 87 06/21/20 12:00 97.9 94 18 124/83 (97) 99 94 06/21/20 12:00 94 06/21/20 09:00 Room Air 06/21/20 08:26 86 125/76 06/21/20 08:00 152 06/21/20 08:00 97.7 86 18 125/76 (92) 99 06/21/20 04:00 97.7 97 16 100/61 (74) 96 06/21/20 04:00 99 06/21/20 00:00 98.1 95 14 106/71 (83) 95 06/21/20 00:00 103 06/20/20 21:58 97 104/76 06/20/20 21:00 Room Air 06/20/20 20:00 104 06/20/20 20:00 99.0 90 16 104/76 (85) 97 06/20/20 17:00 98 Intake and Output 06/20/20 06/21/20 19:00 07:00 Intake Total 630 ml Output Total 600 ml Balance 30 ml Intake Oral 630 ml Output Urine Total 600 ml # Voids 1 1 Microbiology Date/Time Source Procedure Growth Status 06/20/20 11:28 Nasopharynx SARS-CoV-2 RdRp Gene Assay - Final Complete 06/19/20 15:26 Nasopharynx SARS-CoV-2 RdRp Gene Assay - Final Complete Objective HEAD AND NECK: no JVD. LUNGS: Coarse rhonchi. CARDIOVASCULAR: Nl S1 and S2 with no gallop or murmur. ABDOMEN: Soft. EXTREMITIES: No pitting edema. Stefano Smith MD Jun 21, 2020 16:11
--- NOTE | 2020-06-21 16:25 | NUR ---
NURSE NOTES: Pt son, Ricci, came to the unit to visit pt. Informed him of Dr. Vann's order to transfer pt to [facility] unit as well as pt current status which is stable.
--- NOTE | 2020-06-21 17:50 | NUR ---
TRANSFER TO FLOOR: Patient transferred to [facility], per Dr. Vann's order. Report given to Cliff, charge nurse. Belongings and medications given to receiving nurse Family informed of transfer. Pt is in a stable condition.
--- NOTE | 2020-06-21 17:52 | NUR ---
NURSE NOTES:patient transferred from Telemetry floor alert, awake, and verbally responsive. pt is made comfortable in bed. denies any chest pain at this time. no acute distress noted. placed call light within reach, will follow plan of care.
--- NOTE | 2020-06-21 19:22 | NUR ---
NURSE HAND-OFF: Important Events on Shift: TRANSFER FROM TELEMETRY Patient Status: STABLE Diet: CARDIAC Pending Orders: N/A Pending Results/Labs: URINE CULTURE; AWAITING SPECIMEN FROM PATIENT Pending MD notification:N/A Latest Vital Signs: Temperature 98.2 , Pulse 94 , B/P 102 /70 , Respiratory Rate 18 , O2 SAT 97 , Room Air, O2 Flow Rate . Vital Sign Comment: STABLE Latest Dorsey Fall Score: 35 Fall Risk: Medium Risk Safety Measures: Call light Within Reach, Bed Alarm Zone 1, Side Rails Side Rails x2, Bed position Low and Locked. Fall Precautions: Yellow Socks Door Sign Patient Fall Education Report given to MAK.
--- NOTE | 2020-06-21 19:43 | NUR ---
NURSE NOTES: Received pt from SMILEY Bentley. AAO x 2-3, forgetful, on room air. IV site intact and patent. Able to walk with cane. Urine uncollected. Denies chest pain. Bed locked, lowest position, alarm on, side rails up, call light within reach. Will continue to monitor.
[2020-06-21] MEDS ORDERED: Tubing IV Secondary IV ONE (21:39)
[2020-06-21] MEDS ORDERED: NS 500ML ONE (21:39)
[2020-06-22 04:00] VITALS: BP 107/72
--- NOTE | 2020-06-22 06:29 | NUR ---
NURSE NOTES: Urine collected and sent to the lab
--- NOTE | 2020-06-22 06:34 | NUR ---
NURSE HAND-OFF: Important Events on Shift:low BP Patient Status: stable Diet: cardiac soft easy chew Pending Orders: Pending Results/Labs:urine culture Pending MD notification: Latest Vital Signs: Temperature 98.2 , Pulse 98 , B/P 107 /72 , Respiratory Rate 16 , O2 SAT 96 , Room Air, O2 Flow Rate . Vital Sign Comment: [] Latest Dorsey Fall Score: 35 Fall Risk: Medium Risk Safety Measures: Call light Within Reach, Bed Alarm Zone 1, Side Rails Side Rails x2, Bed position Low and Locked. Fall Precautions: Yellow Socks Door Sign Patient Fall Education Addendum: 06/22/20 at 0717 by ALESSANDRA CORADO RN RN HAND-OFF: Report given to Mallory.
--- NOTE | 2020-06-22 07:51 | NUR ---
NURSE NOTES: Received report from MSILEY Rosales. Patient observed to be asleep. Currently on room air, no s/sx of SOB/Distress, no s/sx of any discomfort. IV site located on RFA gauge 20,line is asymptomatic, inplace and intact. Bed placed on lowest and locked, call light placed within reach and will continue to monitor for hypotensive or fever episodes.
[2020-06-22 08:00] VITALS: BP 103/70
[2020-06-22] MEDS: Metoprolol Tartrate 50mg tab ORAL SCH (09:00)
[2020-06-22] MEDS: Eliquis 2.5mg tablet ORAL SCH (09:06)
--- NOTE | 2020-06-22 10:03 | Pulmonology Progress Note ---
Subjective Interval Events: Feeling well Constitutional: Reports: no symptoms HEENT: Repors: no symptoms Respiratory: Reports: no symptoms Cardiovascular: Reports: no symptoms Gastrointestinal/Abdominal: Reports: no symptoms Allergies: Coded Allergies: ASPIRIN (Unverified Adverse Reaction, Unknown, 05/08/16) Objective Last 24 Hour Vital Signs Date Time Temp Pulse Resp B/P (MAP) Pulse Ox O2 Delivery O2 Flow Rate FiO2 06/22/20 09:00 101 103/70 06/22/20 09:00 Room Air 06/22/20 08:00 97.3 101 18 103/70 (81) 98 06/22/20 04:00 98.2 98 16 107/72 (84) 96 06/21/20 23:57 97.9 97 17 91/54 (66) 96 06/21/20 21:00 102 90/58 06/21/20 21:00 Room Air 06/21/20 20:00 98.2 102 16 90/58 (69) 96 06/21/20 16:00 94 06/21/20 15:40 98.2 87 18 102/70 (81) 97 87 06/21/20 12:00 97.9 94 18 124/83 (97) 99 94 06/21/20 12:00 94 Intake and Output 06/21/20 06/22/20 19:00 07:00 Intake Total 645 ml Output Total 800 ml 350 ml Balance -155 ml -350 ml Intake Oral 590 ml IV Total 55 ml Output Urine Total 800 ml 350 ml # Voids 1 General Appearance: no acute distress HEENT: normocephalic Respiratory: chest wall non-tender, lungs clear Cardiovascular: normal peripheral pulses, normal rate Abdomen: normal bowel sounds Microbiology Date/Time Source Procedure Growth Status 06/20/20 11:28 Nasopharynx SARS-CoV-2 RdRp Gene Assay - Final Complete 06/19/20 15:26 Nasopharynx SARS-CoV-2 RdRp Gene Assay - Final Complete Current Medications Medications (Trade) Dose Ordered Sig/Van Route PRN Reason Start Time Stop Time Status Last Admin Dose Admin Acetaminophen (Tylenol) 650 mg Q6H PRN ORAL Temp >100.5 06/19/20 17:15 07/19/20 17:14 06/19/20 17:18 Apixaban (Eliquis) 2.5 mg BID ORAL 06/16/20 18:00 09/14/20 17:59 06/22/20 09:06 Ceftriaxone Sodium 1 gm/ Dextrose 55 ml @ 110 mls/hr Q24H IVPB 06/21/20 11:30 06/28/20 11:29 06/21/20 12:03 Clopidogrel Bisulfate (Plavix) 75 mg DAILY ORAL 06/16/20 09:00 07/16/20 08:59 06/22/20 09:06 Levetiracetam (Keppra) 250 mg TWICE A DAY ORAL 06/16/20 09:00 07/31/20 08:59 06/22/20 09:07 Magnesium Hydroxide (Mom) 30 ml BID PRN ORAL Constipation 06/21/20 15:00 07/21/20 14:59 06/21/20 15:07 Metoprolol Tartrate (Lopressor) 50 mg EVERY 12 HOURS ORAL 06/16/20 11:55 09/14/20 11:54 06/21/20 08:26 Nitroglycerin (Ntg) 0.4 mg Q5M PRN SL Prn Chest Pain 06/15/20 18:00 07/15/20 17:59 Temazepam (Restoril) 15 mg HSPRN PRN ORAL Insomnia 06/16/20 02:00 06/23/20 01:59 Tramadol HCl (Ultram) 50 mg Q4H PRN ORAL For Pain 06/16/20 01:00 06/23/20 00:59 06/19/20 14:37 Assessment/Plan Assessment/Plan IMPRESSION: 1. Chest pain,resolved 2. Troponin negatives. 3. A fib DISCUSSION: Chest pain resolved Heart rate controlled Seen by cardiology Ok to dc Saturating well on RA Lamont Adame Omar Syed MD Jun 22, 2020 10:03
[2020-06-22] MEDS: cefTRIAXone 1 GM in D5W 55 ML IVPB SCH (11:41)
--- NOTE | 2020-06-22 11:59 | Infectious Diseases Prog Note ---
Assessment/Plan Assessment/Plan antibiotics : ceftriaxone A 1. fever improving 2. seizures 3. CAD 4. dementia P 1. continue ceftriaxone 2. will follow up cultures Subjective ROS Limited/Unobtainable: Yes Allergies: Coded Allergies: ASPIRIN (Unverified Adverse Reaction, Unknown, 05/08/16) Objective Last 24 Hour Vital Signs Date Time Temp Pulse Resp B/P (MAP) Pulse Ox O2 Delivery O2 Flow Rate FiO2 06/22/20 09:00 101 103/70 06/22/20 09:00 Room Air 06/22/20 08:00 97.3 101 18 103/70 (81) 98 06/22/20 04:00 98.2 98 16 107/72 (84) 96 06/21/20 23:57 97.9 97 17 91/54 (66) 96 06/21/20 21:00 102 90/58 06/21/20 21:00 Room Air 06/21/20 20:00 98.2 102 16 90/58 (69) 96 06/21/20 16:00 94 06/21/20 15:40 98.2 87 18 102/70 (81) 97 87 06/21/20 12:00 97.9 94 18 124/83 (97) 99 94 06/21/20 12:00 94 Height (Feet): 5 Height (Inches): 6.00 Weight (Pounds): 120 Respiratory/Chest: lungs clear Cardiovascular: normal rate, regular rhythm, no gallop/murmur Abdomen: soft, non tender Extremities: no edema Microbiology Date/Time Source Procedure Growth Status 06/20/20 11:28 Nasopharynx SARS-CoV-2 RdRp Gene Assay - Final Complete 06/19/20 15:26 Nasopharynx SARS-CoV-2 RdRp Gene Assay - Final Complete Current Medications Medications (Trade) Dose Ordered Sig/Van Route PRN Reason Start Time Stop Time Status Last Admin Dose Admin Acetaminophen (Tylenol) 650 mg Q6H PRN ORAL Temp >100.5 06/19/20 17:15 07/19/20 17:14 06/19/20 17:18 Apixaban (Eliquis) 2.5 mg BID ORAL 06/16/20 18:00 09/14/20 17:59 06/22/20 09:06 Ceftriaxone Sodium 1 gm/ Dextrose 55 ml @ 110 mls/hr Q24H IVPB 06/21/20 11:30 06/28/20 11:29 06/22/20 11:41 Clopidogrel Bisulfate (Plavix) 75 mg DAILY ORAL 06/16/20 09:00 07/16/20 08:59 06/22/20 09:06 Levetiracetam (Keppra) 250 mg TWICE A DAY ORAL 06/16/20 09:00 07/31/20 08:59 06/22/20 09:07 Magnesium Hydroxide (Mom) 30 ml BID PRN ORAL Constipation 06/21/20 15:00 07/21/20 14:59 06/21/20 15:07 Metoprolol Tartrate (Lopressor) 50 mg EVERY 12 HOURS ORAL 06/16/20 11:55 09/14/20 11:54 06/21/20 08:26 Nitroglycerin (Ntg) 0.4 mg Q5M PRN SL Prn Chest Pain 06/15/20 18:00 07/15/20 17:59 Temazepam (Restoril) 15 mg HSPRN PRN ORAL Insomnia 06/16/20 02:00 06/23/20 01:59 Tramadol HCl (Ultram) 50 mg Q4H PRN ORAL For Pain 06/16/20 01:00 06/23/20 00:59 06/19/20 14:37 Robby Don MD Jun 22, 2020 11:59
[2020-06-22 12:00] VITALS: BP 103/67
--- NOTE | 2020-06-22 12:33 | NUR ---
*-*DISCHARGE PLANNED*-* PATIENT HAS BEEN ACCEPTED AND WILL BE DISCHARGED BACK TO: [facility] P: [phone] FOR NURSE TO NURSE REPORT ROOM# 308.[facility] TRANSPORTATION SET FOR 1:30PM/ 1430 S/W GARY [id number]. S/W PATIENTS SON CONSUELO MARIE, WHO IS IN AGREEMENT WITH DISCHARGE PLAN.
--- NOTE | 2020-06-22 14:45 | NUR ---
NURSE NOTES: Patient discharged to [facility]. Report given to SMILEY Cross. Patient picked up by 2 ambulance personnel, patient awake, alert and oriented x3. Seen lying in bed, currently on room air no s/sx of SOB/Distress, no c/o any pain or discomfort. IV and ID band removed. Discharge paperworks and documentation done. RP notified. All belongings checked and accounted for. Provided patient with discharge teachings, patient able to verbalize understanding. Patient discharged from unit in stable condition.
--- NOTE | 2020-06-22 15:09 | Cardiac Electrophysiology PN ---
Assessment/Plan Assessment/Plan 1. Atrial fibrillation with rapid ventricular response. On metoprolol 50 mg b.i.d. and Eliquis 2.5 mg b.i.d. 2. CP. Due to atrial fib with RVR. Stress test showed no ischemia. EF 55% 3. Hypertension. On metoprolol 50 mg b.i.d. 4. Seizures, on Keppra. 5. Hard of hearing 6. Renal failure. Cr 1.6. 7. Fever on Abx per ID DW RN Subjective Subjective No CP or SOB. Is hard of hearing. In atrial fib with controlled rate. Stress test showed no ischemia. On Abx for fever DC to [facility] pending Objective Last 24 Hour Vital Signs Date Time Temp Pulse Resp B/P (MAP) Pulse Ox O2 Delivery O2 Flow Rate FiO2 06/22/20 12:00 97.9 99 18 103/67 (79) 99 06/22/20 09:00 101 103/70 06/22/20 09:00 Room Air 06/22/20 08:00 97.3 101 18 103/70 (81) 98 06/22/20 04:00 98.2 98 16 107/72 (84) 96 06/21/20 23:57 97.9 97 17 91/54 (66) 96 06/21/20 21:00 102 90/58 06/21/20 21:00 Room Air 06/21/20 20:00 98.2 102 16 90/58 (69) 96 06/21/20 16:00 94 06/21/20 15:40 98.2 87 18 102/70 (81) 97 87 Intake and Output 06/21/20 06/22/20 19:00 07:00 Intake Total 645 ml Output Total 800 ml 350 ml Balance -155 ml -350 ml Intake Oral 590 ml IV Total 55 ml Output Urine Total 800 ml 350 ml # Voids 1 Microbiology Date/Time Source Procedure Growth Status 06/20/20 11:28 Nasopharynx SARS-CoV-2 RdRp Gene Assay - Final Complete 06/19/20 15:26 Nasopharynx SARS-CoV-2 RdRp Gene Assay - Final Complete Objective HEAD AND NECK: no JVD. LUNGS: Coarse rhonchi. CARDIOVASCULAR: Nl S1 and S2 with no gallop or murmur. ABDOMEN: Soft. EXTREMITIES: No pitting edema. Stefano Smith MD Jun 22, 2020 15:09
--- NOTE | 2020-06-22 16:28 | General Progress Note ---
Subjective Allergies: Coded Allergies: ASPIRIN (Unverified Adverse Reaction, Unknown, 05/08/16) Subjective awake fever with hypotension sob better weakness episode of afib resolved Objective Last 24 Hour Vital Signs Date Time Temp Pulse Resp B/P (MAP) Pulse Ox O2 Delivery O2 Flow Rate FiO2 06/22/20 12:00 97.9 99 18 103/67 (79) 99 06/22/20 09:00 101 103/70 06/22/20 09:00 Room Air 06/22/20 08:00 97.3 101 18 103/70 (81) 98 06/22/20 04:00 98.2 98 16 107/72 (84) 96 06/21/20 23:57 97.9 97 17 91/54 (66) 96 06/21/20 21:00 102 90/58 06/21/20 21:00 Room Air 06/21/20 20:00 98.2 102 16 90/58 (69) 96 Intake and Output 06/21/20 06/22/20 19:00 07:00 Intake Total 645 ml Output Total 800 ml 350 ml Balance -155 ml -350 ml Intake Oral 590 ml IV Total 55 ml Output Urine Total 800 ml 350 ml # Voids 1 Height (Feet): 5 Height (Inches): 6.00 Weight (Pounds): 120 General Appearance: alert EENT: PERRL/EOMI Neck: supple Cardiovascular: regular rhythm Respiratory/Chest: normal breath sounds Abdomen: non tender, soft Assessment/Plan Status: stable Assessment/Plan: 1 rec fever with hypotension 2 leucopenia r/o sepsis 3weakness 4 failure of thrive 5 afib with rvr cardio on the case dc to snf with current meds Dao Vann MD Jun 22, 2020 16:28
--- NOTE | 2020-06-23 12:12 | NUR ---
INSURANCE DC INSTRUCTIONS/CLINICALS (06/20-06/22) FAXED TO [facility] [phone]
--- NOTE | 2020-06-23 12:40 | Discharge Summary ---
Discharge Summary Discharge Summary _ DATE OF ADMISSION: 06/15/2020 DATE OF DISCHARGE: 06/22/2020 DISCHARGED BY: Dr. Vann REASON FOR ADMISSION: 85 years old female with past medical history of hypertension, seizure disorder, presented with complaint of chest pain. Patient reported history of " heart condition" and noticed that her heart racing and she had some jaw pain and neck pain She reported left-sided chest pain, pressure-like, nonradiating, 5 out of 10 on a scale 1 to 10. She denied shortness of breath. No fever or chills. No cough. No nausea , vomiting or diarrhea. Upon evaluation vital signs were stable. Pulse oximetry was stable on room air. Laboratory work-up revealed no leukocytosis, hemoglobin 11.7 , hematocrit 36.3, platelet count 156. Stable electrolytes. BUN 19, creatinine 1.4. Glucose 108. Stable LFT. Troponin negative EKG initially revealed sinus rhythm no acute ischemic changes . Chest x-ray revealed no acute cardiopulmonary pathology. Urinalysis revealed no evidence of urinary tract infection. In emergency department aspirin was not given , since patient reported aspirin allergy. Patient subsequently admitted to telemetry floor for further management. CONSULTANTS: property management coordinator Dr. Nguyen pulmonary Dr. White ID specialist Dr. Don [facility] COURSE: Patient admitted to telemetry floor. Set Decorator closely followed . ECG showed atrial fibrillation with rapid ventricular response. Metoprol dose was increased, Eliquis continued. Serial troponin were negative. EKG revealed no acute ischemic changes. Patient was ruled out for acute myocardial infarction. Echocardiogram demonstrated preserved ejection fraction of 50 to 55%. No evidence of wall motion abnormality. Right ventricular systolic pressure of 28. Patient subsequently undergone myocardial perfusion scan , which was nonischemic and no imaging findings to suggest ischemia at the level of stress achieved. Calculated post-rest ejection fraction was 57%. Telemetry showed atrial fibrillation. Heart rate was controlled with increased dose of beta aubrie and anticoagulation with Eliquis was continued. Per property management coordinator, chest pain was most likely due to atrial fibrillation with rapid ventricular response. Blood pressure was stable with a beta-aubrie. Seizure precaution maintained. Keppra continued. No evidence of seizure activity while in the hospital. Repeated COVID-19 was negative. Patient had episodes of fever. No leukocytosis ID specialist followed. Patient was on empiric antibiotic. Fever resolved Supplemental oxygen was on board to keep pulse oximetry above 92%. Pulse oximetry remained stable on room air. Renal parameters were closely monitored, remained at baseline ; likely chronic renal insufficiency. Hemoglobin and hematocrit remained at baseline as well. Fall precautions maintained. Patient was working with a physical therapist. Supportive care provided Patient clinically stabilized and was discharged to custodial facility for continuation of care. FINAL DIAGNOSES: Atrial fibrillation with rapid ventricular response Chest pain, likely due to A. fib with RVR Hypertension Seizure disorder Renal failure Fevers - resolved Coronary artery disease Dementia DISCHARGE MEDICATIONS: See Medication Reconciliation list. DISCHARGE INSTRUCTIONS: Patient was discharged to the custodial facility. Follow up with medical doctor at the facility. I have been assigned to dictate discharge summary for this account. was not involved in the patient's management. lFory Pedro NP Jun 23, 2020 12:40
== END 2020-06-22 12:45 | DRG 309 ==
LOC: EDBD 10:26 → EMR 12:52 → 2E 13:56 → EDBEDREQ 14:48 → 4E 06-21 18:25
DX: I48.91 Unspecified atrial fibrillation (principal); Z68.1 Body mass index [BMI] 19.9 or less, adult; I10 Essential (primary) hypertension; R62.7 Adult failure to thrive; Z88.6 Allergy status to analgesic agent; I25.10 Atherosclerotic heart disease of native coronary artery without angina pectoris; F03.90 Unspecified dementia, unspecified severity, without behavioral disturbance, psychotic disturbance, mood disturbance, and anxiety; G40.909 Epilepsy, unspecified, not intractable, without status epilepticus; Z79.02 Long term (current) use of antithrombotics/antiplatelets; R50.9 Fever, unspecified; Z79.01 Long term (current) use of anticoagulants; H91.90 Unspecified hearing loss, unspecified ear; N19 Unspecified kidney failure
CPT/HCPCS: 36415; 71045; 78452; 80048; 80053; 81001; 83880; 84484; 85025; 87086; 93005; 93017; 93306; 99285; J2785; J7030; U0002